=== PATIENT | male | born 1970 | race Caucasian/White ===

== ENCOUNTER 2020-07-06 16:17 | Observation (INO) | payer BC, SELFPAY ==
[2020-07-06] VITALS (12 sets, daily range): BP systolic 111–199; BP diastolic 76–102; PULSE 65–83; RESP 18–25; TEMP 36.1–36.5; O2SAT 97–100; BMI 39.4; BMI 40.7
--- NOTE | ~2020-07-06 | CT_ITS ---
EXAMINATION: CT brain wo con DATE: 07/06/2020 17:34 INDICATION: Syncope. TECHNIQUE: Computed tomography (CT) of the head was performed without intravenous contrast. The mA wa s adjusted according to patient size. Iterative reconstruction technique was employed. The dose-lengt h product was 681.00 mGy-cm. COMPARISON: None FINDINGS: There is no intracranial hemorrhage, acute infarction, or abnormal intracranial mass lesion . The ventricles are normal in size. There is mucosal thickening in the paranasal sinuses. The orbits are normal. There is a small left mastoid effusion. IMPRESSION: 1. Normal brain. Reviewed, dictated and finalized at location A. IMPRESSION: 1. Normal brain.
--- NOTE | 2020-07-06 16:49 | PC.NURSE ---
[employer] called and asked to come out because patient has a subcutaneous defibrillator. They state that they will send out a a rep
--- NOTE | 2020-07-06 17:06 | PC.NURSE ---
Rep called from [employer] again and asked if the pt family member could get his home monitor. he states that we can do a transmission that way. will go get it and bring it in
--- NOTE | 2020-07-06 17:19 | ECG_ITS ---
Measurements Intervals Rescue Rate: 76 P: 38 PA: 140 QRS: 21 QRSD: 86 T: 148 QT: 386 QTc: 435 Interpretive Statements SINUS RHYTHM ST-T WAVE ABNORMALITY IN ANTEROLAT/HIGH LAT LEADS- CONSIDER ISCHEMIA ABNORMAL ECG Electronically Signed On 07-07-2020 6:58:23 CDT by Gaston De La Fuente D.O.
--- NOTE | 2020-07-06 17:28 | ED.GENADULT ---
HPI - General Adult General Chief complaint: Syncope Stated complaint: defibrilator fired, syncope Time Seen by Provider: 07/06/20 17:01 Source: patient History of Present Illness HPI narrative: Patient is a 49 y/o male complaining of possible syncope and AICD firing. He states that he was feeling dizzy then he was not sure what happened. His states that he fell off while he was sitting on a bench and he was shaking and twitching for a while. He has no recollection of falling. He currently complains of some chest pain and felt he was shocked. Related Data Home Medications Medication Instructions Recorded Confirmed losartan 50 mg tablet 50 mg PO DAILY 03/24/19 03/24/19 metoprolol succinate 200 mg 200 mg PO DAILY 03/24/19 03/24/19 tablet,extended release 24 hr simvastatin 40 mg tablet 40 mg PO DAILY 03/24/19 03/24/19 omeprazole 20 mg PO DAILY 07/06/20 Allergies Allergy/AdvReac Type Severity Reaction Status Date / Time Penicillins Allergy Unknown Unknown Verified 07/06/20 16:43 Review of Systems Constitutional: Constitutional: Denies chills, Denies fever(s), Denies headache(s) and Denies weakness Eyes: Eyes: Denies blurry vision ENT: Denies headache(s) and Denies neck pain Cardiovascular: Cardiovascular: Reports chest pain and Denies dyspnea Respiratory: Respiratory: Denies cough and Denies dyspnea Gastrointestinal: Gastrointestinal: Denies abdominal pain, Denies diarrhea, Denies nausea and Denies vomiting Genitourinary: Genitourinary: Denies hematuria and Denies dysuria Musculoskeletal: Musculoskeletal: Denies back pain and Denies neck pain Neurologic: Reports dizziness, Reports syncope, Denies headache(s) and Denies weakness [facility] Past Medical History Medical History Cardiomegaly Essential (primary) hypertension GERD (gastroesophageal reflux disease) Hyperlipidemia due to dietary fat intake Implantable cardioverter-defibrillator (ICD) discharge Sleep apnea Family History Family History Father Acute myocardial infarction Mother Patient's mother is in good health Social History Social History Smoking status: Heavy tobacco smoker Alcohol intake: current Substance use: never Substance use type: does not use Gender identity (if verbalized by the patient): Male Spiritual care concerns: No Exam Const: General: no acute distress and well developed Orientation/consciousness: oriented to person, oriented to place, oriented to time and patient oriented x3 HENMT: Head: normocephalic Ears: external ears normal General nose exam: Normal external nose present Eyes: General: appearance normal, both eyes and all related structures Conjunctivae: conjunctivae normal Neck: Neck: normal visual inspection and full ROM Chest: Chest palpation & inspection: normal inspection of the chest and no tenderness Resp: Effort & Inspection: normal respiratory effort Auscultation: clear to auscultation bilaterally Cardio: Rate: regular rate Rhythm: regular rhythm GI: GI Palp: No abdominal tenderness and Yes Soft to palpation Skin: General skin exam: normal color and turgor normal Neuro: General: oriented to person, oriented to place, oriented to time and patient oriented x3 Cranial nerves: Yes CN's II-XII intact bilaterally Cognition (Neuro): normal cognition Speech: normal speech Motor exam (neuro): 5/5 motor strength present throughout Sensory Exam: normal sensation Coordination: [id number] test normal and [id number] test normal Extrem: General: normal to inspection, full ROM and no pedal edema Psych: Appearance: grossly normal Mental Status: mental status grossly normal Affect: normal affect Course Consultations Consultation #1: Discussed with Dr. Mckinnon, who agrees to consult and recommends admitting to hospitalist. Date:
[2020-07-06 17:56] LABS: Basophils Absolute Auto 0.1 K/mm3 (0.0-0.1); Basophils Percent Auto 1.4 % (0.2-1.2); Eosinophils Absolute Auto 0.4 K/mm3 (0-0.3); Eosinophils Percent Auto 4.4 % (0-4.4); Hematocrit 46.8 % (42.0-52.0); Hemoglobin 16.2 g/dL (14.0-18.0); Immature Granulocyte Absolute 0.06 K/mm3 (0.00-0.031); Immature Granulocyte Percent A 0.8 % (0-0.5); Lymphocytes Absolute Auto 2.19 K/mm3 (0.9-3.2); Lymphocytes Percent Auto 27.6 % (18.3-44.2); Mean Corpuscular HGB Conc 34.6 g/dl (32-36); Mean Corpuscular Hemoglobin 31.3 pg (26-34); Mean Corpuscular Volume 90.5 fl (80-100); Mean Platelet Volume 10.9 fl (7.4-10.4); Monocytes Absolute Auto 0.8 K/mm3 (0.1-0.6); Monocytes Percent Auto 9.7 % (2.6-8.5); Neutrophils Absolute Auto 4.5 K/mm3 (1.3-6.7); Neutrophils Percent Auto 56.1 % (45.5-73.1); Platelet Count Result 214 k/mm3 (150-375); Red Blood Count 5.17 M/mm3 (4.6-6.20); Red Cell Distribution Width 13.1 % (11.5-14.5); White Blood Count 7.9 K/mm3 (4.5-10.0)
--- NOTE | 2020-07-06 17:59 | PC.NURSE ---
Using pt home monitor to interpret his difibrillator
[2020-07-06 18:11] LABS: Alanine Aminotransferase 82 U/L (4-50); Albumin Level 4.4 g/dL (3.5-5.1); Alkaline Phosphatase 52 U/L (38-126); Anion Gap 8 mmol/L (8-16); Aspartate Amino Transferase 70 U/L (17-59); Bilirubin,Total 0.2 mg/dL (0.2-1.3); Blood Urea Nitrogen 9 mg/dL (9-20); Calcium 9.4 mg/dL (8.4-10.2); Carbon Dioxide 25 mmol/L (22-30); Chloride 106 mmol/L (98-107); Estimated CRCL calculation 137 ml/min; Estimated Glomerular Filt Rate > 60; Glucose 179 mg/dL (75-110); Potassium 3.8 mmol/L (3.4-5.0); Sodium 139 mmol/L (137-145)
[2020-07-06 18:25] LABS: Troponin I 0.447 ng/mL (0.000-0.034)
[2020-07-06 19:05] LABS: NT Pro B Type Natriuretic Pept 112 pg/mL (5-100)
--- NOTE | 2020-07-06 20:22 | ADMGEN ---
This patient, Celestino Murray, was admitted to IMU Room 214-01 at 2020. Patient/family oriented to hospital policies and general routines including ID bracelet, bed and alarms, visiting hours, pain management, procedures, bathroom and other care routines, personal items, smoking policy, room service/diet, and visiting hours. Information on how to activate the Rapid Response Team has been discussed. Patient/Family are encouraged to report perceived risks to care and to ask questions if they do not understand what they are told or what they should do.
[2020-07-06 21:03] LABS: Troponin I 0.398 ng/mL (0.000-0.034)
--- NOTE | 2020-07-06 21:30 | PM.IMHP ---
H&P: HPI History of Present Illness Date/Time: 07/06/20 21:30 Chief Complaint: Defibrillator fired. Narrative: This is a 49-year-old male smoker with hypertrophic obstructive cardiomyopathy status post defibrillator insertion, hypertension, hyperlipidemia, GERD, and obstructive sleep apnea on CPAP who presented to the emergency department earlier today via private vehicle from home for evaluation after his defibrillator fired not long prior to arrival. He was in his usual state of health when he awoke this morning and sometime this afternoon simply while sitting down he noticed midsternal chest pressure which lasted for perhaps an hour before resolving on its own. For some reason he ignored that feeling. Not not long prior to arrival, while sitting at the kitchen table he began to feel extremely dizzy and he then lost consciousness. His was next to him and notes that he was ?flopping around on the bench? just prior to his defibrillator firing. He was unresponsive for a brief second and they brought him to the hospital for evaluation shortly thereafter. A [employer] ICD was placed for primary prevention in June 2015 and couple of years later the site became infected and was extracted with reimplantation of a subcutaneous ICD below the left axilla. Prior to today he has not experienced any chest discomfort or exertional chest pain. At the time my evaluation he has some discomfort in his chest ?like I was kicked by a mule? which he believes is due to the defibrillator firing. He denies sweats, pleuritic pain, shortness of breath, palpitations, feelings of racing heart, nausea, vomiting, and sweats. Review of Systems Review of Systems: Narrative: Twelve systems were reviewed with pertinent positives and negatives as per HPI. No fever, chills, or sweats. No recent cold or flu symptoms. No known exposure to those positive for COVID-19. He denies cough. Except as documented, all other systems were reviewed and are negative. [facility] Past Medical History Medical History (Updated 07/06/20 @ 22:42 by Sheila Foreman PA-C) Essential hypertension Gastroesophageal reflux disease Hyperlipidemia Hypertrophic obstructive cardiomyopathy Obstructive sleep apnea on CPAP Tobacco abuse Surgical History Surgical History (Updated 07/06/20 @ 22:34 by Sheila Foreman PA-C) History of implantable cardioverter-defibrillator (ICD) insertion [employer] ICD placed for primary prevention June 2015. In May 2017 the site became infected and was extracted with reimplantation below the left axilla complicated by wound dehiscence requiring debridements. Family History Family History (Updated 07/06/20 @ 22:39 by Sheila Foreman PA-C) Father Sudden cardiac , Onset Age: 38 Acute myocardial infarction Mother Chronic obstructive pulmonary disease Sibling Heart disease Social History Social History (Updated 07/06/20 @ 22:38 by Sheila Foreman PA-C) Social History: The patient lives in [place] with his and 4 children. Works for the [employer]. Heavy smoker, up to 2.5 packs a day though down to around 1.5 packs a day. He drinks 12 to 24 beers a week. No illicit substance use. He designates his Kendra Murray as his surrogate decision maker and he wishes to be a full code. Meds Home Medications and Allergies Home Medications Medication Instructions Recorded Confirmed Type losartan 50 mg tablet 50 mg PO DAILY 03/24/19 07/06/20 History metoprolol succinate 200 mg 200 mg PO DAILY 03/24/19 07/06/20 History tablet,extended release 24 hr simvastatin 40 mg tablet 40 mg PO DAILY 03/24/19 07/06/20 History omeprazole 20 mg PO DAILY 07/06/20 07/06/20 History Allergies Allergy/AdvReac Type Severity Reaction Status Date / Time Penicillins Allergy Unknown Unknown Verified 07/06/20 16:43 Vital Signs Vital Signs - 24 hr 07/06/20 16:23 07/06/20 16:38 07/06/20 16:42 Temperature 97.4 F L Puls
[2020-07-07] VITALS (10 sets, daily range): BP systolic 150–162; BP diastolic 76–85; PULSE 55–70; RESP 14–20; TEMP 36.2–36.6; O2SAT 96–99
[2020-07-07 00:45] LABS: Troponin I 0.362 ng/mL (0.000-0.034)
[2020-07-07 01:20] LABS: Hepatitis B Surface Antigen Negative (Negative)
[2020-07-07 01:26] LABS: HAV RESULT Negative (Negative); Hepatitis B Core IgM Result Negative (Negative)
[2020-07-07 01:38] LABS: Hepatitis C Virus Antibody Negative (Negative)
[2020-07-07 04:57] LABS: Hemoglobin 15.8 g/dL (14.0-18.0); Mean Corpuscular HGB Conc 34.3 g/dl (32-36); Mean Corpuscular Hemoglobin 31.2 pg (26-34); Mean Corpuscular Volume 90.7 fl (80-100); Platelet Count Result 202 k/mm3 (150-375); Red Blood Count 5.07 M/mm3 (4.6-6.20); Red Cell Distribution Width 13.2 % (11.5-14.5); White Blood Count 9.3 K/mm3 (4.5-10.0)
[2020-07-07 05:16] LABS: Alanine Aminotransferase 70 U/L (4-50); Albumin Level 4.1 g/dL (3.5-5.1); Alkaline Phosphatase 44 U/L (38-126); Anion Gap 4 mmol/L (8-16); Aspartate Amino Transferase 58 U/L (17-59); Bilirubin,Total 0.3 mg/dL (0.2-1.3); Blood Urea Nitrogen 11 mg/dL (9-20); Calcium 9.2 mg/dL (8.4-10.2); Carbon Dioxide 27 mmol/L (22-30); Chloride 106 mmol/L (98-107); Estimated CRCL calculation 156 ml/min; Estimated Glomerular Filt Rate > 60; Glucose 149 mg/dL (75-110); Magnesium 1.7 mg/dL (1.6-2.3); Potassium 3.8 mmol/L (3.4-5.0); Sodium 137 mmol/L (137-145)
[2020-07-07] MEDS: METOPROLOL SUCCINATE EXT REL 100 MG TABCR 200 MG PO (08:14)
[2020-07-07] MEDS: PANTOPRAZOLE 40 MG TABLET PO (08:15)
[2020-07-07] MEDS: LOSARTAN POTASSIUM 50 MG TABLET PO (08:15)
[2020-07-07] MEDS: SIMVASTATIN 20 MG TABLET 40 MG PO (08:15)
--- NOTE | 2020-07-07 11:10 | PM.CNCAR ---
Assessment and Plan Assessment and plan (1) Ventricular fibrillation: Code(s): I49.01 - Ventricular fibrillation Status: Acute Assessment and Plan: Review of the [employer] ICD download shows the patient had ventricular fibrillation and appropriate and successful ICD discharge. No obvious cause; potassium and magnesium are within normal limits. Wonder if there is any relationship to his heavy drinking the day prior. Probably just an episode of VFib related to his underlying HOCM. I think it is reasonable for him to be discharged with outpatient follow-up. Will re-evaluate with an echo and a Lexiscan as an outpatient. The patient was told he should not drive, perhaps for 3-6 months, to make sure he has no further episodes. Will give a dose of potassium and magnesium prior to discharge, even though these were in the normal range, because of the small U wave noted on EKG. (2) AICD discharge: Code(s): Z45.02 - Encounter for adjustment and management of automatic implantable cardiac defibrillator Status: Acute Assessment and Plan: Appropriate ICD discharge. (3) Elevated troponin: Code(s): R77.8 - Other specified abnormalities of plasma proteins Status: Acute Assessment and Plan: Elevated troponins presumably related to the ICD discharge. (4) Hypertrophic obstructive cardiomyopathy: Code(s): I42.1 - Obstructive hypertrophic cardiomyopathy Status: Acute Assessment and Plan: Patient's cardiomyopathy is asymptomatic with respect to shortness of breath etc. but did predispose him to this ventricular fibrillation event (5) Chest pain: Qualifiers: Chest pain type: unspecified Qualified Code(s): R07.9 - Chest pain, unspecified Code(s): R07.9 - Chest pain, unspecified Status: Acute Assessment and Plan: Episode of chest pain on Sunday night, probably indigestion, will evaluate for any underlying CAD with an outpatient Lexiscan. EKG is abnormal, but this may be the patient's baseline. Will review an office EKG for comparison. (6) Essential hypertension: Code(s): I10 - Essential (primary) hypertension Status: Acute Assessment and Plan: BP high here, will follow-up in the office. May need additional antihypertensives. (7) Tobacco abuse: Code(s): Z72.0 - Tobacco use Status: Acute Assessment and Plan: Patient desires to quit smoking. Congratulated him and encouraged him on smoking cessation (8) Elevated LFTs: Code(s): R79.89 - Other specified abnormal findings of blood chemistry Status: Acute Assessment and Plan: Mildly elevated LFTs noted; may relate to the patient's alcohol use or perhaps he has a fatty liver. Patient was advised to cut back on his alcohol consumption. History of Present Illness History of Present Illness Consult date/time: 07/07/20 11:10 Requesting physician: Sheila Foreman PA-C Consult reason: Other (ICD discharge for V. fib) Reason For Visit: chest pain, vtach Narrative: Quoc Murray is a 49 y.o. white male with a history of HOCM whom I follow in the office. He had an ICD discharge yesterday evening for ventricular fibrillation and was admitted overnight for observation. We were asked to see him in consultation for advice and opinion regarding further follow-up and disposition. The patient states he has been in his normal state of health, able to pack boxes etc. with no particular problems with shortness of breath or chest pain. He did go out drinking heavily on Sunday night for friend's birthday and had some substernal chest pressure, nausea and vomited x1. He blames it on a Birgit; the episode of chest discomfort l
[2020-07-07] MEDS: POTASSIUM CHLORIDE 20 MEQ TABLET 40 MEQ PO (12:52)
[2020-07-07] MEDS: MAGNESIUM OXIDE 400 MG TABLET PO (12:53)
--- NOTE | 2020-07-07 13:08 | PM.DS ---
DS: Admitting Diagnosis Admitting Diagnosis Admitting Diagnosis: AICD firing 2/2 Vfib Elevated troponin Hypertrophic obstructive cardiomyopathy Hypertension Hyperlipidemia TAMICA Tobacco abuse Elevated LFTs DS: Discharge Diagnosis Discharge Diagnosis (1) AICD discharge: Code(s): Z45.02 - Encounter for adjustment and management of automatic implantable cardiac defibrillator Status: Acute (2) Elevated troponin: Code(s): R77.8 - Other specified abnormalities of plasma proteins Status: Acute (3) Hypertrophic obstructive cardiomyopathy: Code(s): I42.1 - Obstructive hypertrophic cardiomyopathy Status: Acute (4) Essential hypertension: Code(s): I10 - Essential (primary) hypertension Status: Acute (5) Hyperlipidemia: Code(s): E78.5 - Hyperlipidemia, unspecified Status: Acute (6) Obstructive sleep apnea on CPAP: Code(s): G47.33 - Obstructive sleep apnea (adult) (pediatric); Z99.89 - Dependence on other enabling machines and devices Status: Acute (7) Tobacco abuse: Code(s): Z72.0 - Tobacco use Status: Acute (8) Elevated LFTs: Code(s): R79.89 - Other specified abnormal findings of blood chemistry Status: Acute DS: Summary Hospital Course Reason for hospitalization: AICD firing Hospital Course: 49-year-old male with AICD presented to the emergency room after sudden firing of his device. This is the 1st episode he has had and he has had the device implanted for approximately 7 years. His amusement ride operator is bedside during my rounds today in his case is reviewed extensively. Patient has AICD is functioning properly. He is cleared for discharge home in stable condition to continue his beta-moustapha and follow-up with Dr. Whitaker in the outpatient setting. Time Spent with Patient Time attestation: Total time spent providing and/or coordinating discharge services: Time spent: Less than 30 minutes Exam Narrative: Exam Narrative: General: Well-developed male sitting up in bed in no distress. Weight: 117.9 kilograms. BMI: 40.7. HEENT: Normocephalic, atraumatic. EOMI. Sclerae anicteric. Oral mucosa moist. Neck: Supple. No JVD. Respiratory: No use of accessory muscles, symmetric chest rise Skin: No rash or lesions on limited exam. Extremities: No cyanosis or clubbing. Neurological: Alert. Cranial nerves 2-12 are grossly intact. No gross focal deficits to casual conversation. Psychiatric: Appropriate mood and affect. DS: Data Data Completed and Pending Labs on day of discharge: Labs from last 24 hours 07/07/20 07/07/20 07/07/20 04:41 04:41 04:41 WBC 9.3 RBC 5.07 Hgb 15.8 Hct 46.0 MCV 90.7 MCH 31.2 MCHC 34.3 RDW 13.2 Plt Count 202 MPV 11.0 H Immature Gran % (Auto) Neut % (Auto) Lymph % (Auto) [place] % (Auto) Eos % (Auto) Baso % (Auto) Lymph # (Auto) [place] # (Auto) Eos # (Auto) Baso # (Auto) Abs Immat Gran (auto) Absolute Neuts (auto) Absolute Nucleated RBC Nucleated RBC % Sodium 137 Potassium 3.8 Chloride 106 Carbon Dioxide 27 Anion Gap 4 L BUN 11 Creatinine 0.60 L Estim Creat Clear Calc 156 Estimated GFR > 60 Glucose 149 H Calcium 9.2 Magnesium 1.7 Total Bilirubin 0.3 AST 58 ALT 70 H Alkaline Phosphatase 44 Troponin I NT-Pro-B Natriuret Pep Total Protein 7.0 Albumin 4.1 TSH (Reflex) 2.540 Hepatitis A IgM Ab Hep Bs Antigen Hep B Core IgM Ab Hepatitis C Ab Screen 07/07/20 07/07/20 07/06/20 00:08 00:08 20:30 WBC RBC Hgb Hct MCV MCH MCHC RDW Plt Count MPV Immature Gran % (Auto) Neut % (Auto) Lymph % (Auto) [place] % (Auto) Eos % (Auto) Baso % (Auto) Lymph # (Auto) [place] # (Auto) Eos # (Auto) Baso # (Auto) Abs Immat Gran (auto) Absolute Neuts (auto) Absolute Nucleated
== END 2020-07-07 13:46 | disposition home or self-care (01) ==
LOC: ANHED 17:01 → ANHIMU 20:49
PROVIDERS: Physician Assistant; Admitting Provider Internal Medicine; Emergency Provider Emergency Medicine; PCP Internal Medicine; Visit Provider Hospitalist
DX: I49.01 Ventricular fibrillation (principal); Z45.02 Encounter for adjustment and management of automatic implantable cardiac defibrillator; I42.1 Obstructive hypertrophic cardiomyopathy; I10 Essential (primary) hypertension; E78.5 Hyperlipidemia, unspecified; F17.210 Nicotine dependence, cigarettes, uncomplicated; G47.33 Obstructive sleep apnea (adult) (pediatric); R77.8 Other specified abnormalities of plasma proteins; R79.89 Other specified abnormal findings of blood chemistry; K21.9 Gastro-esophageal reflux disease without esophagitis
CPT/HCPCS: 36415; 70450; 80053; 80074; 83735; 83880; 84443; 84484; 85025; 85027; 93005; 99285; A9270; G0378

== ENCOUNTER → 2021-05-13 03:00 | Outpatient (CLI) | payer BC, SELFPAY ==
[2021-05-13 12:21] LABS: SARS-CoV-2 RNA PCR Negative
== END ==
PROVIDERS: PCP Internal Medicine; Visit Provider Internal Medicine Gastroenterology
DX: Z01.812 Encounter for preprocedural laboratory examination (principal); Z20.822 Contact with and (suspected) exposure to COVID-19
CPT/HCPCS: C9803; U0003; U0005

== ENCOUNTER 2021-05-16 00:29 | Day surgery (SDC) | payer BC, SELFPAY ==
[2021-05-09 15:44] VITALS: BMI 42.5
--- NOTE | 2021-05-13 15:34 | PM.HPGS ---
History of Present Illness History of Present Illness Consent: Risks, benefits, and alternatives have been discussed and questions answered. Patient agrees to proceed with procedure. Chief complaint: neoplasm screening Narrative: Celestino Murray is a 50 year old male referred for colon cancer screening. Review of Systems Review of Systems: All systems reviewed & are unremarkable except as noted in HPI and below PMFSH Past Medical History Medical History Essential hypertension Gastroesophageal reflux disease Hyperlipidemia Hypertrophic obstructive cardiomyopathy Obstructive sleep apnea on CPAP Tobacco abuse Surgical History Surgical History History of implantable cardioverter-defibrillator (ICD) insertion [employer] ICD placed for primary prevention June 2015. In May 2017 the site became infected and was extracted with reimplantation below the left axilla complicated by wound dehiscence requiring debridements. Family History Family History Father Sudden cardiac , Onset Age: 38 Acute myocardial infarction Mother Chronic obstructive pulmonary disease Sibling Heart disease Social History Social History Social History: The patient lives in [place] with his and 4 children. Works for the [employer]. Heavy smoker, up to 2.5 packs a day though down to around 1.5 packs a day. He drinks 12 to 24 beers a week. No illicit substance use. He designates his Kendra Murray as his surrogate decision maker and he wishes to be a full code. Smoking packs per day: 1 Smoking cigarettes per day: 20.0 Years smoked: 30 Smoking pack-years: 30.00 Smoking status: Current every day smoker Tobacco type: cigarettes Alcohol intake: current Drinks per week: 12 Alcohol use details: BEER Substance use: never Substance use type: does not use Living arrangements: with family Spiritual care concerns: No Meds Home Medications and Allergies Home Medications Medication Instructions Recorded Confirmed Type metoprolol succinate 200 mg 200 mg PO DAILY 03/24/19 05/09/21 History tablet,extended release 24 hr clopidogrel 75 mg tablet 75 mg PO DAILY 07/30/20 05/09/21 History dapagliflozin 10 mg tablet 10 mg PO DAILY 07/30/20 05/09/21 History rosuvastatin 20 mg tablet 20 mg PO DAILY 07/30/20 05/09/21 History sotalol 120 mg tablet 120 mg PO Q12H 07/30/20 05/09/21 History aspirin 81 mg tablet,delayed 81 mg PO DAILY 01/31/21 05/09/21 History release losartan 100 mg tablet 100 mg PO DAILY 01/31/21 05/09/21 History multivitamin 1 tablet PO DAILY 01/31/21 05/09/21 History pantoprazole 40 mg tablet,delayed 40 mg PO QAM 01/31/21 05/09/21 History release propranolol 10 mg tablet 10 mg PO TID tablet 01/31/21 05/09/21 History Allergies Allergy/AdvReac Type Severity Reaction Status Date / Time Penicillins Allergy Intermediate Rash Verified 05/16/21 11:07 Exam Resp: Auscultation: clear to auscultation bilaterally Cardio: Rate: regular rate Rhythm: regular rhythm GI: GI Palp: Yes Soft to palpation and No Tenderness to palpation present (GI) Assessment and Plan Assessment and plan (1) Colon cancer screening: Code(s): Z12.11 - Encounter for screening for malignant neoplasm of colon Status: Acute Assessment and Plan: Colonoscopy with possible biopsy or polypectomy or cautery or injection of substances.
[2021-05-16 11:08] VITALS: BP 154/77; PULSE 72; RESP 16; TEMP 36.1; O2SAT 98; BMI 38.9
[2021-05-16] MEDS: LACTATED RINGERS 1,000 ML 150 ML IV CONT (11:22)
--- NOTE | 2021-05-16 11:25 | WPDANESEPPF ---
Anes - Initial Pre Proc Eval Procedure: Operation Date: 05/16/21 12:30 Proposed Procedures p Screening Colonoscopy - Elder Quiñonez MD Date/Time: 05/16/21 11:25 Surgeon: Elder Quiñonez MD Pre Op Diagnosis: neoplasm screening Patient Data Age: 50 Gender: M Height: 1.73 m Weight: 116.2 kg Last Vital Signs Temp 36.1 C L 05/16/21 11:08 Pulse 72 05/16/21 11:08 Resp 16 05/16/21 11:08 BP 154/77 H 05/16/21 11:08 Pulse Ox 98 05/16/21 11:08 Allergies Allergy/AdvReac Type Severity Reaction Status Date / Time Penicillins Allergy Intermediate Rash Verified 05/16/21 11:07 Home Medications Medication Instructions Recorded Confirmed Type metoprolol succinate 200 mg 200 mg PO DAILY 03/24/19 05/09/21 History tablet,extended release 24 hr clopidogrel 75 mg tablet 75 mg PO DAILY 07/30/20 05/09/21 History dapagliflozin 10 mg tablet 10 mg PO DAILY 07/30/20 05/09/21 History rosuvastatin 20 mg tablet 20 mg PO DAILY 07/30/20 05/09/21 History sotalol 120 mg tablet 120 mg PO Q12H 07/30/20 05/09/21 History aspirin 81 mg tablet,delayed 81 mg PO DAILY 01/31/21 05/09/21 History release losartan 100 mg tablet 100 mg PO DAILY 01/31/21 05/09/21 History multivitamin 1 tablet PO DAILY 01/31/21 05/09/21 History pantoprazole 40 mg tablet,delayed 40 mg PO QAM 01/31/21 05/09/21 History release propranolol 10 mg tablet 10 mg PO TID tablet 01/31/21 05/09/21 History Patient hx anesthesia problems: none Family hx anesthesia problems: none Results Review: All pre-operative results and documents have been reviewed as part of the pre-operative evaluation. [facility] Past Medical History Medical History Essential hypertension Gastroesophageal reflux disease Hyperlipidemia Hypertrophic obstructive cardiomyopathy Obstructive sleep apnea on CPAP Tobacco abuse Surgical History Surgical History History of implantable cardioverter-defibrillator (ICD) insertion [employer] ICD placed for primary prevention June 2015. In May 2017 the site became infected and was extracted with reimplantation below the left axilla complicated by wound dehiscence requiring debridements. Family History Family History Father Sudden cardiac , Onset Age: 38 Acute myocardial infarction Mother Chronic obstructive pulmonary disease Sibling Heart disease Social History Social History Social History: The patient lives in [place] with his and 4 children. Works for the [employer]. Heavy smoker, up to 2.5 packs a day though down to around 1.5 packs a day. He drinks 12 to 24 beers a week. No illicit substance use. He designates his Kendra Murray as his surrogate decision maker and he wishes to be a full code. Smoking packs per day: 1 Smoking cigarettes per day: 20.0 Years smoked: 30 Smoking pack-years: 30.00 Smoking status: Current every day smoker Tobacco type: cigarettes Alcohol intake: current Drinks per week: 12 Alcohol use details: BEER Substance use: never Substance use type: does not use Living arrangements: with family Spiritual care concerns: No Anes - Eval Final PreProcedure Day of Procedure 05/16/21 11:25 Patient weight: obese Heart: regular rate and rhythm Lungs: clear to auscultation Airway: Mallampati scale class III Neurological: alert and oriented Last oral intake: >/= 8 hours ASA classification: III Emergent: no Anesthetic plan: proceed Anesthesia type and monitoring: general GIVS and standard monitoring Results Review: All pre-operative results and documents have been reviewed as part of the pre-operative evaluation. Informed Consent: The patient's anesthetic plan and its attendant risks and benefits were discussed with the patient/family/POA
[2021-05-16 12:43] VITALS: BP 82/44; PULSE 64; RESP 20; O2SAT 92
[2021-05-16 12:53] VITALS: BP 97/46; PULSE 61; RESP 19; O2SAT 97
[2021-05-16 13:03] VITALS: BP 115/73; PULSE 62; RESP 14; O2SAT 97
== END 2021-05-16 13:15 | disposition home or self-care (01) ==
PROVIDERS: PCP Internal Medicine; Visit Provider Internal Medicine Gastroenterology
PROC: 0DJD8ZZ Inspection of Lower Intestinal Tract, Via Natural or Artificial Opening Endoscopic (ICD-10-PCS; CPT 45378; principal; 2021-05-16 12:30)
DX: Z12.11 Encounter for screening for malignant neoplasm of colon (principal); K64.8 Other hemorrhoids; Z79.82 Long term (current) use of aspirin; I10 Essential (primary) hypertension; K21.9 Gastro-esophageal reflux disease without esophagitis; G47.33 Obstructive sleep apnea (adult) (pediatric); E78.5 Hyperlipidemia, unspecified; I42.1 Obstructive hypertrophic cardiomyopathy; Z95.810 Presence of automatic (implantable) cardiac defibrillator; F17.210 Nicotine dependence, cigarettes, uncomplicated; E66.9 Obesity, unspecified; Z68.39 Body mass index [BMI] 39.0-39.9, adult
CPT/HCPCS: 45378; C9803; J2001; J2704; J7120; U0003; U0005

== ENCOUNTER 2021-10-01 21:06 | Emergency (ER) | payer BC, SELFPAY ==
[2021-10-01 21:10] VITALS: BP 125/76; PULSE 121; RESP 18; TEMP 36.1; O2SAT 97
--- NOTE | 2021-10-01 21:10 | ECG_ITS ---
Measurements Intervals [place] Rate: 137 P: SD: 0 QRS: 12 QRSD: 80 T: 144 QT: 303 QTc: 458 Interpretive Statements ATRIAL FIBRILLATION WITH RAPID VENTRICULAR RESPONSE LEFT VENTRICULAR HYPERTROPHY WITH ST-T CHANGE ST-T WAVE ABNORMALITY IN HIGH LATERAL LEADS- CONSIDER ISCHEMIA BASELINE WANDER- I, AVL, V1-V6 ABNORMAL ECG Electronically Signed On 10-02-2021 8:14:02 CDT by Gaston De La Fuente D.O.
--- NOTE | 2021-10-01 21:10 | ED.ARRPALP ---
HPI - Arrhythmia/Palpitations General Chief Complaint: Arrhythmia/Palpitations Stated Complaint: heart racing Time Seen by Provider: 10/01/21 21:10 Source: patient, family and RN notes reviewed Mode of arrival: ambulatory Limitations: no limitations History of Present Illness complaint: rapid heart beat and palpitations Onset (ago): hour(s) (1) Duration: constant Severity: moderate Context: occurred during rest Arrhythmia history: pacemaker Associated symptoms: chest pain, shortness of breath and nausea Related Data Home Medications Medication Instructions Recorded Confirmed clopidogrel 75 mg tablet 75 mg PO DAILY 07/30/20 10/02/21 dapagliflozin 10 mg tablet 10 mg PO DAILY 07/30/20 10/02/21 ([facility]) rosuvastatin 20 mg tablet 20 mg PO HS 07/30/20 10/02/21 sotalol 120 mg tablet 120 mg PO Q12H 07/30/20 10/02/21 aspirin 81 mg tablet,delayed 81 mg PO DAILY 01/31/21 10/02/21 release (Adult Low Dose Aspirin) losartan 100 mg tablet 100 mg PO DAILY 01/31/21 10/02/21 propranolol 10 mg tablet 10 mg PO TID 01/31/21 10/02/21 pantoprazole 40 mg tablet,delayed 40 mg PO DAILY 10/02/21 10/02/21 release Allergies Allergy/AdvReac Type Severity Reaction Status Date / Time Penicillins Allergy Intermediate Rash Verified 10/02/21 02:23 Review of Systems Review of Systems: All systems reviewed & are unremarkable except as noted in HPI and below Constitutional: Constitutional: Denies excessive sweating PMFSH Past Medical History Medical History Essential hypertension Gastroesophageal reflux disease Hyperlipidemia Hypertrophic obstructive cardiomyopathy Obstructive sleep apnea on CPAP Tobacco abuse Surgical History Surgical History History of implantable cardioverter-defibrillator (ICD) insertion [place] [employer] ICD placed for primary prevention June 2015. In May 2017 the site became infected and was extracted with reimplantation below the left axilla complicated by wound dehiscence requiring debridements. Family History Family History (Updated 10/02/21 @ 02:32 by Maren Boggs RN) Father Acute myocardial infarction Sudden cardiac , Onset Age: 38 Mother Chronic obstructive pulmonary disease Sibling Heart disease Grandparent Cerebrovascular accident Other Diabetes mellitus Social History Social History Social History: The patient lives in [place] with his and 4 children. Works for the [employer]. Heavy smoker, up to 2.5 packs a day though down to around 1.5 packs a day. He drinks 12 to 24 beers a week. No illicit substance use. He designates his Kendra Murray as his surrogate decision maker and he wishes to be a full code. Smoking packs per day: 1 Smoking cigarettes per day: 20.0 Years smoked: 25 Smoking pack-years: 25.00 Smoking status: Heavy tobacco smoker Tobacco type: cigarettes Second hand tobacco smoke exposure: Yes Alcohol intake: current Drinks per week: 12 Alcohol use details: BEER Substance use: never Substance use type: does not use Other substance usage details: 12 beers per week Spiritual care concerns: No Exam Const: General: healthy appearing, no acute distress and alert Nutritional Appearance: well nourished and obese morbidly obese Orientation/consciousness: patient oriented x3 Limitations: no limitations HENMT: Head: normal to inspection Ears: external ears normal Face and sinus: normal facial exam Eyes: Conjunctivae: conjunctivae normal Pupils: Equal, round and reactive pupils present EOM: EOMs intact bilaterally Neck: Neck: normal visual inspection Resp: Effort & Inspection: normal respiratory effort Auscultation: clear to auscultation bilaterally Cardio: Rate: tachycardic Rhythm: abnormal rhythm irregularly irregular GI: GI Palp: Yes Soft to palpation a
[2021-10-01 21:20] VITALS: PULSE 135
[2021-10-01] MEDS: dilTIAZem HCl INJ 25 MG/5 ML VIAL 20 MG IV PUSH (21:50)
[2021-10-01 21:52] LABS: Basophils Percent Auto 0.9 % (0.0-1.0); Eosinophils Percent Auto 3.8 % (1.0-6.0); Hematocrit 45.8 % (40.0-54.0); Hemoglobin 16.4 g/dL (14.0-18.0); Immature Granulocyte Absolute 0.05 K/mm3 (0.00-0.00); Immature Granulocyte Percent A 0.5 % (0.0-0.0); Lymphocytes Absolute Auto 2.81 K/mm3 (1.10-4.50); Lymphocytes Percent Auto 26.7 % (18.0-42.0); Mean Corpuscular HGB Conc 35.8 g/dL (32.0-36.0); Mean Corpuscular Hemoglobin 31.7 pg (27.0-31.0); Mean Corpuscular Volume 88.4 fL (78.0-102.0); Mean Platelet Volume 11.2 fl (8.7-11.0); Monocytes Absolute Auto 0.86 K/mm3 (0.10-0.90); Monocytes Percent Auto 8.2 % (2.0-11.0); Neutrophils Absolute Auto 6.3 K/mm3 (1.7-7.2); Neutrophils Percent Auto 59.9 % (50.0-70.0); Platelet Count Result 224 K/mm3 (150-420); Red Blood Count 5.18 M/mm3 (4.70-6.10); Red Cell Distribution Width 12.6 % (11.6-14.4); White Blood Count 10.5 K/mm3 (4.8-10.8)
[2021-10-01 21:53] VITALS: BP 114/66; PULSE 125
[2021-10-01] MEDS: dilTIAZem 100 MG/100 ML 100 MG/100 ML BAG 10 MG IV CONT (21:53)
[2021-10-01 22:04] VITALS: BP 113/72; PULSE 97
[2021-10-01 22:20] LABS: Alanine Aminotransferase 94 U/L (16-63); Alkaline Phosphatase 53 U/L (46-116); Anion Gap 13 mmol/L (8-16); Aspartate Amino Transferase 52 U/L (15-37); Bilirubin,Total 0.3 mg/dL (0.00-1.00); Blood Urea Nitrogen 9 mg/dL (7-18); Carbon Dioxide 22 mmol/L (21-32); Chloride 105 mmol/L (98-108); Estimated CRCL calculation 122 ml/min; Estimated Glomerular Filt Rate > 60; Glucose 138 mg/dL (70-99); NT Pro B Type Natriuretic Pept 97 pg/mL (0-125); Osmolality Calculated 290 mOsm/kg (285-295); Potassium 3.7 mmol/L (3.5-5.1); Sodium 140 mmol/L (136-145); Total Protein 7.7 g/dL (6.4-8.2)
[2021-10-01 22:21] LABS: Magnesium 1.9 mg/dL (1.8-2.4)
[2021-10-01 22:21] LABS: Thyroid Stimulating Hormone 2.53 uIU/mL (0.36-3.74)
[2021-10-01 22:23] LABS: Troponin I 609.7 ng/L (0.00-60.4)
--- NOTE | 2021-10-01 22:26 | ECG_ITS ---
Measurements Intervals [place] Rate: 86 P: [place]: 0 QRS: 28 QRSD: 97 T: 160 QT: 378 QTc: 454 Interpretive Statements ATRIAL FIBRILLATION ST-T WAVE ABNORMALITY IN ANTEROLAT/HIGH LAT LEADS- CONSIDER ISCHEMIA BASELINE WANDER- I, III, AVL, AVF ABNORMAL ECG Electronically Signed On 10-02-2021 8:14:38 CDT by Gaston De La Fuente D.O.
[2021-10-01 22:45] VITALS: BP 113/78; PULSE 86; RESP 18; O2SAT 97
[2021-10-01 23:15] VITALS: BP 120/70; PULSE 88; RESP 20; O2SAT 97
[2021-10-02 00:27] LABS: SARS-CoV-2 Ag Negative (Negative)
[2021-10-02 00:53] VITALS: BP 111/60; PULSE 88; RESP 18; TEMP 37; O2SAT 97
== END 2021-10-02 01:42 | disposition short-term general hospital (02) ==
PROVIDERS: Emergency Provider Emergency Medicine; PCP Internal Medicine
DX: I48.20 Chronic atrial fibrillation, unspecified (principal); F17.200 Nicotine dependence, unspecified, uncomplicated; I10 Essential (primary) hypertension; K21.9 Gastro-esophageal reflux disease without esophagitis; E78.5 Hyperlipidemia, unspecified; Z20.822 Contact with and (suspected) exposure to COVID-19
CPT/HCPCS: 36415; 80053; 83735; 83880; 84443; 84484; 85025; 87426; 93005; 96365; 96366; 99285; C9803

== ENCOUNTER 2021-10-02 02:24 | Observation (INO) | payer BC, SELFPAY ==
[2021-10-02] VITALS (21 sets, daily range): BP systolic 100–176; BP diastolic 42–85; PULSE 60–110; RESP 16–24; TEMP 36.1–36.7; O2SAT 98–99; BMI 41.9
--- NOTE | 2021-10-02 02:23 | PM.IMHP ---
H&P: HPI History of Present Illness Date/Time: 10/02/21 02:23 Chief Complaint: Palpitations Narrative: This is a 50-year-old male with past medical history significant for obstructive sleep apnea on CPAP at nighttime, tobacco dependence, hypertension, gastroesophageal reflux disease, hypertrophic obstructive cardiomyopathy status post AICD placement, morbid obesity. patient presents to the hospital acid transfer from outside hospital after he was diagnosed with atrial fibrillation with rapid ventricular response this is new onset for him although his had several episodes of ventricular fibrillation and shock according to patient he was playing sand box when he had new onset pounding of the chest with lightheadedness and some shortness of breath waited out for 30 minutes but did not go away and decided to go to the emergency room patient has been his usual state of health prior to these denies any syncope, near syncope, orthopnea, PND, leg swelling, chest pain he did develop some chest discomfort with this episode, denies any fevers, rigors, chills, nausea, vomiting, abdominal pain, diarrhea. Patient is been admitted for further evaluation management and treatment. Review of Systems Review of Systems: Palpitations, chest discomfort. Constitutional: Constitutional: Denies chills, Denies fever(s), Denies malaise, Denies night sweats and Denies weakness Eyes: Eyes: Denies change in vision ENT: Denies dysphagia, Denies vertigo, Denies dizziness and Denies odynophagia Cardiovascular: Cardiovascular: Reports chest pain, Reports rapid heart rate, Denies pedal edema, Reports irregular heart rhythm, Reports lightheadedness, Reports palpitations and Denies dyspnea on exertion Respiratory: Respiratory: Denies chest congestion, Denies cough, Denies excessive phlegm production and Denies dyspnea Gastrointestinal: Gastrointestinal: Denies dyspepsia, Denies heartburn, Denies diarrhea, Denies nausea and Denies vomiting Genitourinary: Genitourinary: Denies dysuria Musculoskeletal: Musculoskeletal: Denies back pain Integumentary/Breasts: Skin/Breast: Denies rash Neurologic: Denies focal weakness and Denies Sensory deficit (Neuro) Psychiatric: Psychiatric: Reports no additional psychiatric complaints and Reports as per HPI Endocrine: Endocrine: Denies cold intolerance, Denies fatigue, Denies flushing, Denies heat intolerance, Denies polyphagia, Denies polydipsia and Denies palpitations Allergic/Immunologic: Allergic/Immunologic: Reports no additional allergic/immunologic complaints and Reports as per HPI [facility] Past Medical History Medical History Essential hypertension Gastroesophageal reflux disease Hyperlipidemia Hypertrophic obstructive cardiomyopathy Obstructive sleep apnea on CPAP Tobacco abuse Surgical History Surgical History History of implantable cardioverter-defibrillator (ICD) insertion [place] [employer] ICD placed for primary prevention June 2015. In May 2017 the site became infected and was extracted with reimplantation below the left axilla complicated by wound dehiscence requiring debridements. Family History Family History (Updated 10/02/21 @ 02:32 by Maren Boggs RN) Father Acute myocardial infarction Sudden cardiac , Onset Age: 38 Mother Chronic obstructive pulmonary disease Sibling Heart disease Grandparent Cerebrovascular accident Other Diabetes mellitus Social History Social History Social History: The patient lives in [place] with his and 4 children. Works for the [employer]. Heavy smoker, up to 2.5 packs a day though down to around 1.5 packs a day. He drinks 12 to 24 beers a week. No illicit substance use. He designates his Kendra Murray as his surrogate decision maker and he wishes to be a full code. Smoking packs per
--- NOTE | 2021-10-02 02:26 | ECG_ITS ---
Measurements Intervals [place] Rate: 81 P: [place]: 0 QRS: 35 QRSD: 97 T: 160 QT: 384 QTc: 448 Interpretive Statements ATRIAL FIBRILLATION EARLY PRECORDIAL R/S TRANSITION ST-T WAVE ABNORMALITY IN ANTEROLAT/HIGH LAT LEADS- CONSIDER ISCHEMIA ABNORMAL ECG Electronically Signed On 10-02-2021 8:09:25 CDT by Gaston De La Fuente D.O.
[2021-10-02] MEDS: dilTIAZem 100 MG/100 ML 100 MG/100 ML BAG IV CONT (02:52)
--- NOTE | 2021-10-02 02:54 | PC.NURSE ---
This patient, Celestino Murray, was admitted to IMU Room 205-01 at 0206. Patient/family oriented to hospital policies and general routines including ID bracelet, bed and alarms, visiting hours, pain management, procedures, bathroom and other care routines, personal items, smoking policy, room service/diet, and visiting hours. Information on how to activate the Rapid Response Team has been discussed. Patient/Family are encouraged to report perceived risks to care and to ask questions if they do not understand what they are told or what they should do.
[2021-10-02 02:55] LABS: Basophils Absolute Auto 0.1 K/mm3 (0.0-0.1); Basophils Percent Auto 0.9 % (0.2-1.2); Eosinophils Absolute Auto 0.4 K/mm3 (0-0.3); Eosinophils Percent Auto 3.5 % (0-4.4); Hematocrit 46.9 % (42.0-52.0); Hemoglobin 16.2 g/dL (14.0-18.0); Immature Granulocyte Absolute 0.06 K/mm3 (0.00-0.031); Immature Granulocyte Percent A 0.6 % (0-0.5); Lymphocytes Absolute Auto 3.69 K/mm3 (0.9-3.2); Lymphocytes Percent Auto 33.9 % (18.3-44.2); Mean Corpuscular HGB Conc 34.5 g/dl (32-36); Mean Corpuscular Hemoglobin 30.6 pg (26-34); Mean Corpuscular Volume 88.7 fl (80-100); Mean Platelet Volume 10.8 fl (7.4-10.4); Monocytes Absolute Auto 0.9 K/mm3 (0.1-0.6); Neutrophils Absolute Auto 5.8 K/mm3 (1.3-6.7); Neutrophils Percent Auto 53.1 % (45.5-73.1); Platelet Count Result 226 k/mm3 (150-375); Red Blood Count 5.29 M/mm3 (4.6-6.20); Red Cell Distribution Width 13.2 % (11.5-14.5); White Blood Count 10.9 K/mm3 (4.5-10.0)
[2021-10-02 03:05] LABS: INR 1.1; Prothrombin Time 13.9 Seconds (11.1-14.7)
[2021-10-02 03:06] LABS: Hemoglobin A1C 6.1 % (<5.7); Partial Thromboplastin Time 30.6 SECONDS (22.3-36.8)
--- NOTE | 2021-10-02 03:11 | ECG_ITS ---
Measurements Intervals [place] Rate: 59 P: 43 [place]: 150 QRS: 33 QRSD: 91 T: 162 QT: 461 QTc: 460 Interpretive Statements SINUS BRADYCARDIA ST-T WAVE ABNORMALITY IN ANTEROLAT/HIGH LAT LEADS- CONSIDER ISCHEMIA ABNORMAL ECG Electronically Signed On 10-02-2021 17:22:29 CDT by Gaston De La Fuente D.O.
[2021-10-02 03:14] LABS: Magnesium 1.9 mg/dL (1.6-2.3)
[2021-10-02 03:31] LABS: Troponin I 0.798 ng/mL (0.000-0.034)
[2021-10-02] MEDS: WATER FOR IRRIGATION, STERILE 1,000 ML BOTTLE 1000 ML (03:41)
[2021-10-02 07:14] LABS: Troponin I 0.822 ng/mL (0.000-0.034)
[2021-10-02 07:52] LABS: Estimated CRCL calculation 139 ml/min; Estimated Glomerular Filt Rate > 60
--- NOTE | 2021-10-02 08:48 | PM.CNCAR ---
Assessment and Plan Assessment and plan (1) Atrial fibrillation with RVR: Code(s): I48.91 - Unspecified atrial fibrillation Status: Acute Assessment and Plan: New onset of AFib RVR Patient states compliant with his medications, sotalol and propranolol Contributing factors are his underlying heart disease, sleep apnea, and alcohol intake Reviewed atrial fibrillation, natural history, paroxysmal nature, risk of cardioembolic events etc. with the patient. Will change Lovenox to Xarelto, and discontinue clopidogrel. Increase propranolol and discontinue Cardizem If the patient remains in atrial fibrillation tomorrow we can proceed with a NASEEM guided cardioversion on Sunday (NASEEM because he may have had some intermittent episodes of AFib recently.) Will ask patient to follow-up with his jacquard loom heddles tier as an outpatient also, to see if we should increase the sotalol dose, or if any other approaches would be beneficial (ablation? ). (2) Elevated troponin: Code(s): R77.8 - Other specified abnormalities of plasma proteins Status: Acute Assessment and Plan: Type 2 [place], Elevated troponin secondary to known HOCM and AFib RVR. No ACS. Chronically abnormal EKG (3) CAD (coronary artery disease): Code(s): I25.10 - Atherosclerotic heart disease of [place] coronary artery without angina pectoris Status: Acute Assessment and Plan: History of RCA stent No angina, stable. No ACS. (4) Hypertrophic obstructive cardiomyopathy: Code(s): I42.1 - Obstructive hypertrophic cardiomyopathy Status: Acute Assessment and Plan: Hypertrophic obstructive cardiomyopathy, basically asymptomatic with good exertional tolerance. (5) Ventricular fibrillation: Code(s): I49.01 - Ventricular fibrillation Status: Acute Assessment and Plan: History of ventricular arrhythmias requiring multiple ICD discharges July 2020, quiescent on sotalol. (6) ICD (implantable cardioverter-defibrillator) in place: Code(s): Z95.810 - Presence of automatic (implantable) cardiac defibrillator Status: Acute Assessment and Plan: Subcutaneous ICD present, no recent ICD discharges. History of Present Illness History of Present Illness Consult date/time: 10/02/21 08:48 Reason For Visit: A Fib w/RVR Narrative: Celestino Murray is a 50 y.o. male whom I was asked to see at the request of Dr. Angulo for my advice and opinion regarding his atrial fibrillation, in consultation. I follow Mr. Murray in my office for his history of hypertrophic obstructive cardiomyopathy, ICD for primary prevention in June 2015, which was later revised for a subcutaneous ICD. He had ventricular tachycardia = and CAD status post RCA stent in July 2020. Before and after his RCA stent he had several episodes of ventricular tachycardia that were hard to control and he was started on amiodarone/mexiletine and later transferred to [place] and changed to sotalol. The ventricular arrhythmias settled down and was thought to be late sequelae of his myocardial ischemia. He also has a history of difficult to control hypertension, hyperlipidemia, TAMICA on CPAP and is a former smoker. The patient has been well, able to exert with no particular problems with the shortness of breath or chest pain. Last Sunday he noted little flutters in his chest but that went away after he laid down. Yesterday while playing sand bag, and drinking a few beers, he suddenly felt his heart race with fast heartbeats, heart pounding out of his chest and he got very sweaty. He had mild tightness and shortness of breath. After did resolve in 30 minutes he went to the ER in [place] was started on a Cardizem drip for AFib RVR in transferred to [facility]. He was started on Lovenox. He remains in AFib with heart rate in the 90s. No history of bleeding problems or prior atrial fibrillation. Compliant with CPAP. Does dri
[2021-10-02] MEDS: ENOXAPARIN 120 MG/0.8 ML SYRINGE SUB-Q (09:23)
[2021-10-02 10:09] LABS: Troponin I 0.683 ng/mL (0.000-0.034)
[2021-10-02] MEDS: PROPRANOLOL HCL 20 MG TABLET PO ×3 (10:27→18:31)
[2021-10-02] MEDS: PANTOPRAZOLE 40 MG TABLET PO (10:28)
[2021-10-02] MEDS: SOTALOL HCL 40 MG TABLET 120 MG PO ×2 (10:28→21:14)
[2021-10-02] MEDS: ASPIRIN 81 MG ENTERIC TABLET PO (10:28)
[2021-10-02] MEDS: LOSARTAN POTASSIUM 100 MG TABLET PO (10:28)
[2021-10-02] MEDS: ACETAMINOPHEN 325 MG TABLET 650 MG PO (10:37)
--- NOTE | 2021-10-02 12:11 | PM.IMPN ---
Progress Note: A&P Assessment and Plan (1) Atrial fibrillation with RVR: Code(s): I48.91 - Unspecified atrial fibrillation Status: Acute Assessment and Plan: Patient was on sotalol and propranolol prior to admission. He has been compliant with this regimen. He presents with elevated heart rate and found to have AFib with RVR. He was started on diltiazem drip and heart rate is become better controlled. TSH is normal. Echocardiogram has been ordered. Propranolol dose has been increased. Sotalol has been continued. QTC is 448. EKG does show anterior lateral ST T wave changes but this was present on EKG last year in felt to be chronic EKG findings. Troponin elevated to 0.8 but trending down. [place] related to Type II [place] from demand related to the RVR. Patient is on Lovenox since being converted to Xarelto. Cardiology was consulted. Continue to monitor on telemetry. Cardioversion being considered. (2) Hypertrophic obstructive cardiomyopathy: Code(s): I42.1 - Obstructive hypertrophic cardiomyopathy Status: Acute Assessment and Plan: Patient with a history of hypertrophic obstructive cardiomyopathy. ICD was placed in 2016 for primary prevention. This was later revised. He did develop ventricular tachycardia last year resulting in the firing of the ICD. Was felt related to the myocardial ischemia at the time. Continue tele. Echo ordered. Continue medical management with beta-moustapha, ARB and dapagliflozin. (3) Tobacco abuse: Code(s): Z72.0 - Tobacco use Status: Acute Assessment and Plan: Patient states he only smokes once a week when he drinks alcohol. He usually smokes a pack a day on that day. He was educated about the benefits of smoking cessation. (4) Obstructive sleep apnea on CPAP: Code(s): G47.33 - Obstructive sleep apnea (adult) (pediatric); Z99.89 - Dependence on other enabling machines and devices Status: Acute Assessment and Plan: Patient compliant with CPAP at night. Continue the same here. (5) Essential hypertension: Code(s): I10 - Essential (primary) hypertension Status: Acute Assessment and Plan: Patient's blood pressure was reviewed on 10/02 Blood pressure remains well controlled. Will continue current medications. (6) CAD (coronary artery disease): Code(s): I25.10 - Atherosclerotic heart disease of [place] coronary artery without angina pectoris Status: Acute Assessment and Plan: Patient with known coronary disease. EKG noted and as above. Troponin elevated as above. Continue medical management with Crestor, beta-moustapha, Plavix and aspirin. (7) Alcohol consumption binge drinking: Code(s): F10.10 - Alcohol abuse, uncomplicated Status: Acute Assessment and Plan: Patient binge drinks a 12 pack on the weekend. He was educated about the benefits of abstain from alcohol use. Plan DVT prophylaxis: Lovenox changing to Xarelto Code status: Full Diet: Heart healthy Subjective Date/time seen: 10/02/21 12:11 Interval history: 50yo male with CAD, TAMICA, HTN and hypertrophic cardiomyopathy here for heart racing and found to be in new onset AFib/RVR. Assuming care. Chart reviewed. Patient feels well today. Denies chest pain or shortness of breath. Has been up walking the bathroom without dyspnea. Patient is compliant with his CPAP at home. He continues to smoke when he drinks alcohol. He binge drinks usually a 12 pack on the weekend. Exam Narrative: AF 98.0 125/65 81 24 98% ra Gen - NARD Chest - CTA bilaterally, nml RR CV -irregularly irregular. S1-S2. Telemetry showing AFib and Aflutter with controlled rate Abd - Soft, NT/ND, Positive BS Ext - No pedal edema Psych - Nml mood and affect Skin - Warm and dry Objective Data Vital Signs Vital Signs: Vital Signs - 24 hr 10/02/21 02:15 10/02/21 02:12 10/02/21 02:52 Temperature 9
[2021-10-02] MEDS: RIVAROXABAN 20 MG TABLET PO (18:30)
[2021-10-02] MEDS: ROSUVASTATIN 10 MG TABLET 20 MG PO (18:32)
[2021-10-03] VITALS (8 sets, daily range): BP systolic 136–146; BP diastolic 60–71; PULSE 62–67; RESP 12–20; TEMP 36.2–36.8; O2SAT 97–100
[2021-10-03 05:32] LABS: Anion Gap 10 mmol/L (8-16); Blood Urea Nitrogen 12 mg/dL (9-20); Calcium 8.8 mg/dL (8.4-10.2); Carbon Dioxide 23 mmol/L (22-30); Chloride 102 mmol/L (98-107); Estimated CRCL calculation 139 ml/min; Estimated Glomerular Filt Rate > 60; Glucose 173 mg/dL (65-110); Potassium 3.8 mmol/L (3.4-5.0); Sodium 135 mmol/L (137-145)
[2021-10-03] MEDS: SOTALOL HCL 40 MG TABLET 120 MG PO (09:49)
[2021-10-03] MEDS: PROPRANOLOL HCL 20 MG TABLET PO (09:50)
[2021-10-03] MEDS: PANTOPRAZOLE 40 MG TABLET PO (09:50)
[2021-10-03] MEDS: LOSARTAN POTASSIUM 100 MG TABLET PO (09:50)
[2021-10-03] MEDS: ASPIRIN 81 MG ENTERIC TABLET PO (09:51)
--- NOTE | 2021-10-03 10:47 | PM.PNCARD ---
Progress Note: A&P Assessment and Plan (1) Atrial fibrillation with RVR: Code(s): I48.91 - Unspecified atrial fibrillation Status: Inactive Assessment and Plan: New onset of AFib RVR Continue sotalol 120 mg twice daily and propranolol 20 mg 3 times daily. Xarelto 20 mg added. Patient leaves he was already off clopidogrel as an outpatient. Continue aspirin 81 mg daily. Counseled to monitor for bleeding. Stable for discharge home today. Follow up with Dr. Whitaker in 1 month. Follow-up with heart failure Dr. White and EP at [place]. (2) Elevated troponin: Code(s): R77.8 - Other specified abnormalities of plasma proteins Status: Acute Assessment and Plan: Type 2 [place], Elevated troponin secondary to known HOCM and AFib RVR. No ACS. Chronically abnormal EKG (3) CAD (coronary artery disease): Code(s): I25.10 - Atherosclerotic heart disease of [place] coronary artery without angina pectoris Status: Acute Assessment and Plan: History of RCA stent No angina, stable. No ACS. (4) Hypertrophic obstructive cardiomyopathy: Code(s): I42.1 - Obstructive hypertrophic cardiomyopathy Status: Acute Assessment and Plan: Hypertrophic obstructive cardiomyopathy, basically asymptomatic with good exertional tolerance. (5) Ventricular fibrillation: Code(s): I49.01 - Ventricular fibrillation Status: Acute Assessment and Plan: History of ventricular arrhythmias requiring multiple ICD discharges July 2020, quiescent on sotalol. (6) ICD (implantable cardioverter-defibrillator) in place: Code(s): Z95.810 - Presence of automatic (implantable) cardiac defibrillator Status: Acute Assessment and Plan: Subcutaneous ICD present, no recent ICD discharges. Subjective Date/time seen: Date of service: 10/03/21 10:47 Follow-up for atrial fibrillation, ICD, history of HCM, CAD Patient feeling well. Remains in sinus rhythm on telemetry. No chest pain, palpitation, dizziness or shortness of breath. He is tolerating medications. Review of Systems Review of Systems: Fevers, chills, bleeding, dizziness, headache, chest pain or shortness of breath, no palpitations. Constitutional: Constitutional: Denies fever(s) Eyes: Eyes: Reports no additional eye complaints ENT: Denies epistaxis Cardiovascular: Cardiovascular: Reports chest pain, Denies pedal edema, Denies lightheadedness, Reports palpitations, Reports dyspnea (Mild shortness of breath with yesterday's AFib) and Denies dyspnea on exertion Respiratory: Respiratory: Denies chest congestion, Reports dyspnea (Mild shortness of breath with yesterday's AFib) and Denies dyspnea on exertion Gastrointestinal: Gastrointestinal: Denies abdominal pain and Denies hematochezia Genitourinary: Genitourinary: Denies hematuria Musculoskeletal: Musculoskeletal: Reports no additional musculoskeletal complaints Integumentary/Breasts: Skin/Breast: Reports system reviewed and no additional complaints, except as docu Neurologic: Reports system reviewed and no additional complaints, except as documented, Denies behavioral changes and Denies confusion Psychiatric: Psychiatric: Denies behavioral changes and Denies confusion Endocrine: Endocrine: Reports palpitations Exam Const: General: cooperative, healthy appearing and comfortable; No confusion Orientation/consciousness: oriented to person, patient oriented x3 and No confusion Other: Obese, pleasant, sleeping with CPAP on my arrival. HENMT: Mouth: Yes moist mucous membranes Eyes: EOM: EOMs intact bilaterally Neck: Neck: supple Thyroid: thyroid normal Carotids: no bruits Resp: Effort & Inspection: normal respiratory effort Auscultation: clear to auscultation bilaterally Cardio: Rate: regular rate Rhythm: regular rhythm and abnormal rhythm irregularly irregular Heart sounds: Murmur heart sound present (2/6 YASMEEN at the r
--- NOTE | 2021-10-03 10:48 | PM.DS ---
DS: Admitting Diagnosis Discharge Date 10/03/21 Admitting Diagnosis Palpitations DS: Discharge Diagnosis Discharge Diagnosis (1) Atrial fibrillation with RVR: Code(s): I48.91 - Unspecified atrial fibrillation Status: Inactive (2) Hypertrophic obstructive cardiomyopathy: Code(s): I42.1 - Obstructive hypertrophic cardiomyopathy Status: Acute (3) Tobacco abuse: Code(s): Z72.0 - Tobacco use Status: Acute (4) Obstructive sleep apnea on CPAP: Code(s): G47.33 - Obstructive sleep apnea (adult) (pediatric); Z99.89 - Dependence on other enabling machines and devices Status: Acute (5) Essential hypertension: Code(s): I10 - Essential (primary) hypertension Status: Acute (6) CAD (coronary artery disease): Code(s): I25.10 - Atherosclerotic heart disease of [place] coronary artery without angina pectoris Status: Acute (7) Alcohol consumption binge drinking: Code(s): F10.10 - Alcohol abuse, uncomplicated Status: Acute DS: Summary Hospital Course Reason for hospitalization: 50yo male with CAD, TAMICA, HTN and hypertrophic cardiomyopathy here for heart racing and found to be in new onset AFib/RVR. Please see H&P for details. Hospital Course: The following issues were addressed: (1) Atrial fibrillation with RVR: Patient was on sotalol and propranolol prior to admission.? He has been compliant with this regimen.? He presents with elevated heart rate and found to have AFib with RVR.? He was started on diltiazem drip and heart rate became better controlled.? TSH was normal.? Echocardiogram was ordered and is pending this dictation.? Propranolol dose was increased.? Sotalol was continued.? QTC was 448.? EKG does show anterior lateral ST T wave changes but this was present on EKG last year and felt to be chronic EKG findings.? Troponin elevated to 0.8 but trending down. [place] related to Type II VT from demand related to the RVR. Patient was on Lovenox before changing to Xarelto. He is able to afford this medication.? Cardiology was consulted.?Patient converted to normal sinus rhythm. (2) Hypertrophic obstructive cardiomyopathy: Patient with a history of hypertrophic obstructive cardiomyopathy.? ICD was placed in 2016 for primary prevention.? This was later revised.? He did develop ventricular tachycardia last year resulting in the firing of the ICD related to the myocardial ischemia at the time. We continued medical management with beta-moustapha, ARB and dapagliflozin. (3) Tobacco abuse: Patient states he only smokes once a week when he drinks alcohol.? He usually smokes a pack a day on that day.? He was educated about the benefits of smoking cessation. (4) Obstructive sleep apnea on CPAP: Patient is compliant with CPAP at night at home.?We continued the same here. (5) Essential hypertension: Patient's blood pressure was monitored closely and BP remained well controlled.? (6) CAD (coronary artery disease): Patient with known coronary disease.? EKG noted and as above. Troponin elevated as above. Continue medical management with Crestor, beta-moustapha and aspirin. (7) Alcohol consumption binge drinking: Patient binge drinks a 12 pack on the weekend.? He was educated about the benefits of abstaining from alcohol use. Status at Discharge Cognitive/behavioral status at discharge: Stable Time Spent with Patient Time attestation: Total time spent providing and/or coordinating discharge services: 35 minutes Time spent: Greater than 30 minutes Exam Narrative: AF 97.2 136/71 66 12 97% ra Gen - NARD Chest - CTA bilaterally, nml RR CV - RRR. S1-S2. Telemetry showing normal sinus Abd - Soft, NT/ND, Positive BS Ext - No pedal edema Psych - Nml mood and affect Skin - Warm and dry DS: Data Data Completed and Pending Labs on day of discharge: Labs from last 24 hours 10/03/21 04:29 Sodium 135 L Potassium 3.8 Chloride 1
== END 2021-10-03 12:28 | disposition home or self-care (01) ==
PROVIDERS: Admitting Provider Internal Medicine; PCP Internal Medicine; Visit Provider Internal Medicine
DX: I48.91 Unspecified atrial fibrillation (principal); I42.1 Obstructive hypertrophic cardiomyopathy; F17.210 Nicotine dependence, cigarettes, uncomplicated; G47.33 Obstructive sleep apnea (adult) (pediatric); Z99.89 Dependence on other enabling machines and devices; Z95.810 Presence of automatic (implantable) cardiac defibrillator; I10 Essential (primary) hypertension; I25.10 Atherosclerotic heart disease of native coronary artery without angina pectoris; F10.10 Alcohol abuse, uncomplicated; R77.8 Other specified abnormalities of plasma proteins; Z95.5 Presence of coronary angioplasty implant and graft; E78.5 Hyperlipidemia, unspecified; K21.9 Gastro-esophageal reflux disease without esophagitis; R94.31 Abnormal electrocardiogram [ECG] [EKG]; Z79.01 Long term (current) use of anticoagulants; Z79.84 Long term (current) use of oral hypoglycemic drugs; Z79.82 Long term (current) use of aspirin; Z79.899 Other long term (current) drug therapy; Z82.49 Family history of ischemic heart disease and other diseases of the circulatory system
CPT/HCPCS: 36415; 80048; 82565; 83036; 83735; 84484; 85025; 85610; 85730; 93005; 96372; A9270; G0378; J1650

== ENCOUNTER 2022-05-16 20:14 | Emergency (ER) | payer OTHER, SELFPAY ==
[2022-05-16] VITALS (11 sets, daily range): BP systolic 98–222; BP diastolic 53–90; PULSE 87–146; RESP 20; TEMP 36.6–37.2; O2SAT 96–100
--- NOTE | 2022-05-16 20:20 | ED.ARRPALP ---
HPI - Arrhythmia/Palpitations General Chief Complaint: Unspecified Stated Complaint: AFIB Time Seen by Provider: 05/16/22 20:20 Source: patient and RN notes reviewed Mode of arrival: ambulatory Limitations: no limitations History of Present Illness complaint: rapid heart beat, heart racing and palpitations Onset (ago): minute(s) (30) Duration: constant Severity: moderate Context: occurred during rest Arrhythmia history: atrial fibrillation Associated symptoms: chest pain (muscles ache in chest tightness) Related Data Home Medications Medication Instructions Recorded Confirmed rosuvastatin 20 mg tablet 20 mg PO HS 07/30/20 05/16/22 sotalol 120 mg tablet 120 mg PO Q12H 07/30/20 05/16/22 aspirin 81 mg tablet,delayed 81 mg PO DAILY 01/31/21 05/16/22 release (Adult Low Dose Aspirin) losartan 100 mg tablet 100 mg PO DAILY 01/31/21 05/16/22 pantoprazole 40 mg tablet,delayed 40 mg PO DAILY 10/02/21 05/16/22 release Allergies Allergy/AdvReac Type Severity Reaction Status Date / Time Penicillins Allergy Intermediate Rash Verified 10/02/21 02:23 Review of Systems Review of Systems: All systems reviewed & are unremarkable except as noted in HPI and below PMFSH Past Medical History Medical History (Updated 05/16/22 @ 21:31 by Omar Patterson MD) Alcohol consumption binge drinking Atrial fibrillation CAD (coronary artery disease) RCA stent 07/2020 Essential hypertension Gastroesophageal reflux disease Hyperlipidemia Hypertrophic obstructive cardiomyopathy Obstructive sleep apnea on CPAP Tobacco abuse Surgical History Surgical History History of implantable cardioverter-defibrillator (ICD) insertion [place] scientific ICD placed for primary prevention June 2015. In May 2017 the site became infected and was extracted with a subcutaneous reimplantation complicated by wound dehiscence requiring debridements. Family History Family History Father Acute myocardial infarction Sudden cardiac , Onset Age: 38 Mother Chronic obstructive pulmonary disease Sibling Heart disease Grandparent Cerebrovascular accident Other Diabetes mellitus Social History Social History Social History: The patient lives in [place] with his and 4 children. Works for the [employer]. Heavy smoker, up to 2.5 packs a day though down to around 1.5 packs a day. He drinks 12 to 24 beers a week. No illicit substance use. He designates his Kendra Murray as his surrogate decision maker and he wishes to be a full code. Smoking packs per day: 1 Smoking cigarettes per day: 20.0 Years smoked: 25 Smoking pack-years: 25.00 Smoking status: Heavy tobacco smoker Tobacco type: cigarettes Second hand tobacco smoke exposure: Yes Alcohol intake: current Drinks per week: 12 Alcohol use details: BEER Substance use: never Substance use type: does not use Other substance usage details: 12 beers per week Living arrangements: with family Spiritual care concerns: No Exam Const: General: healthy appearing, no acute distress and alert Nutritional Appearance: well nourished and obese centrally obese Orientation/consciousness: patient oriented x3 Limitations: no limitations HENMT: Head: normal to inspection Ears: external ears normal and TM's normal bilaterally Face/Nose/Sinus: Normal external nose present Face and sinus: normal facial exam Mouth: Yes moist mucous membranes Eyes: Conjunctivae: conjunctivae normal Pupils: Equal, round and reactive pupils present EOM: EOMs intact bilaterally Neck: Neck: normal visual inspection Resp: Effort & Inspection: normal respiratory effort Auscultation: clear to auscultation bilaterally Cardio: Rate: tachycardic Rhythm: abnormal rhythm irregularly irregular GI: GI Palp: Yes Soft to palpation an
--- NOTE | 2022-05-16 20:27 | ECG_ITS ---
Measurements Intervals [place] Rate: 138 P: SD: 0 QRS: 49 QRSD: 89 T: 117 QT: 293 QTc: 445 Interpretive Statements ATRIAL FIBRILLATION WITH RAPID VENTRICULAR RESPONSE ST-T WAVE ABNORMALITY IN HIGH LATERAL LEADS- CONSIDER ISCHEMIA BASELINE ARTIFACT- V2-V6 ABNORMAL ECG COMPARED TO ECG 10/02/2021 15:11:04 ATRIAL FIBRILLATION NOW PRESENT Electronically Signed On 05-16-2022 21:40:33 CDT by Gaston De La Fuente D.O.
[2022-05-16 20:39] LABS: Basophils Absolute Auto 0.12 K/mm3 (0.00-0.10); Eosinophils Absolute Auto 0.37 K/mm3 (0.02-0.50); Eosinophils Percent Auto 3.1 % (1.0-6.0); Hematocrit 48.6 % (40.0-54.0); Hemoglobin 17.3 g/dL (14.0-18.0); Immature Granulocyte Absolute 0.05 K/mm3 (0.00-0.00); Immature Granulocyte Percent A 0.4 % (0.0-0.0); Lymphocytes Absolute Auto 4.05 K/mm3 (1.10-4.50); Lymphocytes Percent Auto 34.1 % (18.0-42.0); Mean Corpuscular HGB Conc 35.6 g/dL (32.0-36.0); Mean Corpuscular Volume 87.1 fL (78.0-102.0); Mean Platelet Volume 11.1 fl (8.7-11.0); Monocytes Absolute Auto 1.11 K/mm3 (0.10-0.90); Monocytes Percent Auto 9.3 % (2.0-11.0); Neutrophils Absolute Auto 6.2 K/mm3 (1.7-7.2); Neutrophils Percent Auto 52.1 % (50.0-70.0); Platelet Count Result 257 K/mm3 (150-420); Red Blood Count 5.58 M/mm3 (4.70-6.10); Red Cell Distribution Width 13.4 % (11.6-14.4); White Blood Count 11.9 K/mm3 (4.8-10.8)
[2022-05-16] MEDS: dilTIAZem 100 MG/100 ML 100 MG/100 ML BAG 10 MG IV CONT (20:40)
[2022-05-16] MEDS: dilTIAZem HCl INJ 25 MG/5 ML VIAL IV PUSH (20:40)
[2022-05-16 20:54] LABS: INR 1.3; Partial Thromboplastin Time 34.7 SEC (23.90-30.70); Prothrombin Time 14.3 Seconds (9.50-12.10)
[2022-05-16 20:59] LABS: Alanine Aminotransferase 66 U/L (16-63); Albumin Level 4.3 g/dL (3.4-5.0); Alkaline Phosphatase 60 U/L (46-116); Anion Gap 13 mmol/L (8-16); Aspartate Amino Transferase 29 U/L (15-37); Bilirubin,Total 0.4 mg/dL (0.00-1.00); Blood Urea Nitrogen 8 mg/dL (7-18); Calcium 9.3 mg/dL (8.5-10.1); Carbon Dioxide 26 mmol/L (21-32); Chloride 107 mmol/L (98-108); Estimated Glomerular Filt Rate > 60; Glucose 131 mg/dL (70-99); NT Pro B Type Natriuretic Pept 90 pg/mL (0-125); Osmolality Calculated 302 mOsm/kg (285-295); Potassium 3.8 mmol/L (3.5-5.1); Sodium 146 mmol/L (136-145); Total Protein 8.3 g/dL (6.4-8.2)
[2022-05-16 21:00] LABS: Troponin I 365.9 ng/L (0.00-60.4)
== END 2022-05-16 23:08 | disposition short-term general hospital (02) ==
PROVIDERS: Emergency Provider Emergency Medicine
DX: I48.20 Chronic atrial fibrillation, unspecified (principal); R77.8 Other specified abnormalities of plasma proteins; I25.10 Atherosclerotic heart disease of native coronary artery without angina pectoris; E78.5 Hyperlipidemia, unspecified; I10 Essential (primary) hypertension; F17.210 Nicotine dependence, cigarettes, uncomplicated; Z79.82 Long term (current) use of aspirin; Z95.810 Presence of automatic (implantable) cardiac defibrillator
CPT/HCPCS: 36415; 80053; 83880; 84484; 85025; 85610; 85730; 93005; 96365; 96366; 96376; 99285

== ENCOUNTER 2022-05-16 23:38 | Observation (INO) | payer MEDICARE, SELFPAY ==
--- NOTE | ~2022-05-16 | XR_ITS ---
Portable chest x-ray Comparison: 05/24/2017 Clinical History: Chest pain Findings: Probable minimal central pulmonary venous congestive change noted. No consolidation or ple ural effusion. Cardiomediastinal silhouette is stable, with pacemaker device. Bones and soft tissues are unremarkable. Impression: Minimal central pulmonary venous congestive change. Pacemaker device. Reviewed, dictated and finalized at location . Impression: Minimal central pulmonary venous congestive change. Pacemaker device.
--- NOTE | 2022-05-16 23:37 | ADMGEN ---
This patient, Celestino Murray, was admitted to IMU Room 205-02. Patient/family oriented to hospital policies and general routines including ID bracelet, bed and alarms, visiting hours, pain management, procedures, bathroom and other care routines, personal items, smoking policy, room service/diet, and visiting hours. Information on how to activate the Rapid Response Team has been discussed. Patient/Family are encouraged to report perceived risks to care and to ask questions if they do not understand what they are told or what they should do.
[2022-05-16 23:45] VITALS: BP 123/73; PULSE 97; RESP 18; TEMP 36.4; O2SAT 98
[2022-05-16 23:46] VITALS: BMI 40.6
[2022-05-17] VITALS (19 sets, daily range): BP systolic 115–136; BP diastolic 67–85; PULSE 62–102; RESP 16–22; TEMP 36–36.6; O2SAT 97–99
--- NOTE | 2022-05-17 00:04 | PM.IMHP ---
H&P: HPI History of Present Illness Date/Time: 05/17/22 00:04 Chief Complaint: Chest pain Narrative: This is a 51-year-old male with past medical history significant for atrial fibrillation, gastroesophageal reflux disease, dyslipidemia, patient is rate controlled and anticoagulated, obesity, tobacco dependence, alcohol dependence, AICD in place. Presents to outside hospital emergency room due to palpitations chest pain felt like his chest caved in he took his regular medications but did not go away felt pounding on his chest as well denies any near-syncope or syncope or lightheadedness or dizziness with it no nausea or vomiting. Patient states that he has been his usual state of health up until this point denies any chest pain with activity or leg swelling or ankle swelling or shortness of breath or cough or sputum production no fevers rigors or chills.Patient was found to have atrial fibrillation with rapid ventricular response and placed on Cardizem drip. Preliminary workup was also significant for elevated troponins. Patient has been transferred to our facility for further evaluation management and treatment. Review of Systems Review of Systems: Palpitations, chest pain. Constitutional: Constitutional: Denies chills, Denies fatigue, Denies fever(s), Denies malaise and Denies weakness Eyes: Eyes: Denies change in vision ENT: Denies dysphagia and Denies odynophagia Cardiovascular: Cardiovascular: Reports chest pain, Denies leg edema and Reports palpitations Respiratory: Respiratory: Denies chest congestion and Denies cough Gastrointestinal: Gastrointestinal: Denies abdominal pain, Denies dyspepsia, Denies heartburn, Denies diarrhea, Denies nausea and Denies vomiting Genitourinary: Genitourinary: Denies dysuria Musculoskeletal: Musculoskeletal: Denies back pain and Denies muscle weakness Integumentary/Breasts: Skin/Breast: Denies rash Neurologic: Denies focal weakness and Denies Sensory deficit (Neuro) Psychiatric: Psychiatric: Reports no additional psychiatric complaints and Reports as per HPI Endocrine: Endocrine: Denies cold intolerance, Denies flushing, Denies heat intolerance, Denies polyphagia, Denies polydipsia and Denies palpitations Hematologic/Lymphatic: Hematologic/Lymphatic: Reports no additional hematologic/lymphatic complaints and Reports as per HPI Allergic/Immunologic: Allergic/Immunologic: Reports no additional allergic/immunologic complaints and Reports as per HPI [facility] Past Medical History Medical History (Updated 05/17/22 @ 03:54 by Kyle Pedroza MD) Alcohol consumption binge drinking Atrial fibrillation CAD (coronary artery disease) RCA stent 07/2020 Essential hypertension Gastroesophageal reflux disease Hyperlipidemia Hypertrophic obstructive cardiomyopathy Obstructive sleep apnea on CPAP Tobacco abuse Surgical History Surgical History History of implantable cardioverter-defibrillator (ICD) insertion [place] [employer] ICD placed for primary prevention June 2015. In May 2017 the site became infected and was extracted with a subcutaneous reimplantation complicated by wound dehiscence requiring debridements. Family History Family History Father Acute myocardial infarction Sudden cardiac , Onset Age: 38 Mother Chronic obstructive pulmonary disease Sibling Heart disease Grandparent Cerebrovascular accident Other Diabetes mellitus Social History Social History Social History: The patient lives in [place] with his and 4 children. Works for the [employer]. Heavy smoker, up to 2.5 packs a day though down to around 1.5 packs a day. He drinks 12 to 24 beers a week. No illicit substance use. He designates his Kendra Murray as his surrogate decision maker and he wishes to be a full code. Smoking packs p
[2022-05-17] MEDS: dilTIAZem 100 MG/100 ML 100 MG/100 ML BAG 10 MG IV CONT ×2 (00:32→09:18)
[2022-05-17 04:09] LABS: Basophils Absolute Auto 0.1 K/mm3 (0.0-0.1); Eosinophils Absolute Auto 0.3 K/mm3 (0-0.3); Eosinophils Percent Auto 2.7 % (0-4.4); Hematocrit 47.1 % (42.0-52.0); Hemoglobin 16.2 g/dL (14.0-18.0); Immature Granulocyte Absolute 0.06 K/mm3 (0.00-0.031); Immature Granulocyte Percent A 0.6 % (0-0.5); Lymphocytes Percent Auto 31.6 % (18.3-44.2); Mean Corpuscular HGB Conc 34.4 g/dl (32-36); Mean Corpuscular Hemoglobin 30.4 pg (26-34); Mean Corpuscular Volume 88.4 fl (80-100); Mean Platelet Volume 10.9 fl (7.4-10.4); Monocytes Absolute Auto 0.8 K/mm3 (0.1-0.6); Monocytes Percent Auto 7.5 % (2.6-8.5); Neutrophils Absolute Auto 5.9 K/mm3 (1.3-6.7); Neutrophils Percent Auto 56.6 % (45.5-73.1); Platelet Count Result 209 k/mm3 (150-375); Red Blood Count 5.33 M/mm3 (4.6-6.20); White Blood Count 10.5 K/mm3 (4.5-10.0)
[2022-05-17 04:21] LABS: INR 1.9; Prothrombin Time 20.8 Seconds (11.1-14.7)
[2022-05-17 04:22] LABS: Partial Thromboplastin Time 41.3 SECONDS (22.3-36.8)
[2022-05-17 04:23] LABS: Anion Gap 6 mmol/L (8-16); Blood Urea Nitrogen 11 mg/dL (9-20); Calcium 8.9 mg/dL (8.4-10.2); Carbon Dioxide 25 mmol/L (22-30); Chloride 109 mmol/L (98-107); Estimated CRCL calculation 134 ml/min; Estimated Glomerular Filt Rate > 60; Glucose 126 mg/dL (65-110); Magnesium 1.9 mg/dL (1.6-2.3); Phosphorus 5.3 mg/dL (2.5-4.5); Potassium 3.8 mmol/L (3.4-5.0); Sodium 140 mmol/L (137-145)
[2022-05-17] MEDS: LOSARTAN POTASSIUM 100 MG TABLET PO (09:20)
[2022-05-17] MEDS: PROPRANOLOL HCL 20 MG TABLET PO (09:20)
[2022-05-17] MEDS: SOTALOL HCL 40 MG TABLET 120 MG PO ×2 (09:20→20:09)
--- NOTE | 2022-05-17 10:58 | PM.IMPN ---
Progress Note: A&P Assessment and Plan (1) Atrial fibrillation with RVR: Code(s): I48.91 - Unspecified atrial fibrillation Status: Acute Assessment and Plan: Heart rate well controlled with IV diltiazem. He remains on propranolol and sotalol. He also remains on Xarelto. Wean off diltiazem as he tolerates. Cardiology has been consulted. Check TSH. (2) Elevated troponin: Code(s): R77.8 - Other specified abnormalities of plasma proteins Status: Acute Assessment and Plan: Patient with elevated troponins. Patient was having chest pain prior to admission. He has known coronary disease. EKG reviewed personally showing inverted T-waves in high lateral leads but this has been noted prior. Repeat EKG. Cardiology has been consulted. Continue aspirin, statin and beta-moustapha. (3) ICD (implantable cardioverter-defibrillator) in place: Code(s): Z95.810 - Presence of automatic (implantable) cardiac defibrillator Status: Acute Assessment and Plan: AICD in place. This has not fired recently. Continue to monitor (4) CAD (coronary artery disease): Code(s): I25.10 - Atherosclerotic heart disease of [place] coronary artery without angina pectoris Status: Acute Assessment and Plan: As above. (5) Obstructive sleep apnea on CPAP: Code(s): G47.33 - Obstructive sleep apnea (adult) (pediatric); Z99.89 - Dependence on other enabling machines and devices Status: Acute Assessment and Plan: CPAP at nighttime. He is compliant with treatment. (6) Alcohol consumption binge drinking: Code(s): F10.10 - Alcohol abuse, uncomplicated Status: Acute Assessment and Plan: He has a history of binge drinking. CIWA as needed. Follow. Add thiamine. (7) Tobacco dependence: Code(s): F17.200 - Nicotine dependence, unspecified, uncomplicated Status: Acute Assessment and Plan: Down to 5 cig/day. Patient was educated about the benefits of smoking cessation. Subjective Date/time seen: 05/17/22 10:58 Interval history: 51yo male with AFib, CAD and HTN here for chest pain and found to have AFib/RVR. Assuming care. Chart reviewed. He has been without insurance recently. He states he has been paying [id number] for his home medications. He believes he did miss some doses of Xarelto. He continues to smoke has cut back considerably. Drinks about 24 oz of caffeine per day. He had 3 beers prior to the onset of symptoms. Does have an AICD in place but this has not fired over the past 2 years. Exam Narrative: AF 96.8 136/85 84 18 99% ra Gen - NARD HEENT - right TM dull, left TM retracted Chest - mild diffuse expiratory wheezes. nml RR CV - irregularly irregular. 3/6 systolic murmur loudest at the apex. Tele showing AFib with controlled rate. Abd - Soft, NT/ND, Positive BS Ext - No pedal edema Psych - Nml mood and affect Skin - Warm and dry Objective Data Vital Signs Vital Signs: Vital Signs - 24 hr 05/16/22 23:45 05/17/22 00:32 05/17/22 00:00 Temperature 97.5 F L Pulse Rate 97 100 102 H Respiratory Rate 18 Blood Pressure 123/73 Pulse Oximetry 98 Oxygen Delivery 05/17/22 00:00 05/17/22 00:30 05/17/22 02:00 Temperature Pulse Rate 97 84 Respiratory Rate Blood Pressure Pulse Oximetry 98 Oxygen Delivery CPAP 05/17/22 04:00 05/17/22 04:00 05/17/22 04:00 Temperature 97.7 F Pulse Rate 82 82 93 Respiratory Rate 18 20 Blood Pressure 134/67 Pulse Oximetry 98 97 Oxygen Delivery CPAP 05/17/22 05:58 05/17/22 07:50 05/17/22 09:18 Temperature 96.8 F L Pulse Rate 84 80 92 Respiratory Rate 18 Blood Pressure 136/85 Pulse Oximetry 99 Oxygen Delivery 05/17/22 09:18 05/17/22 08:00 05/17/22 10:00 Temperature Pulse Rate 92 83 84 Respiratory Rate Blood Pressure Pulse Oximetry Oxygen Delivery 05/17/22 08:00 Temp
--- NOTE | 2022-05-17 11:09 | ECG_ITS ---
Measurements Intervals [place] Rate: 64 P: VT: 0 QRS: 27 QRSD: 97 T: 159 QT: 434 QTc: 451 Interpretive Statements ATRIAL FIBRILLATION ST-T WAVE ABNORMALITY IN ANTEROLAT/HIGH LAT LEADS- CONSIDER ISCHEMIA BASELINE ARTIFACT- I, III, V3-V4 ABNORMAL ECG COMPARED TO ECG 05/16/2022 20:39:01 HEART RATE HAS DECREASED Electronically Signed On 05-17-2022 12:46:38 CDT by Gaston De La Fuente D.O.
--- NOTE | 2022-05-17 11:19 | PM.CNCAR ---
Assessment and Plan Assessment and plan (1) Atrial fibrillation with RVR: Code(s): I48.91 - Unspecified atrial fibrillation Status: Acute Assessment and Plan: Patient reports compliance with his Sotalol and Propranolol, although not his Xarelto. Continue Xarelto. Continue Sotalol. Will stop Diltiazem drip and increase Propranolol dose. (2) Elevated troponin: Code(s): R77.8 - Other specified abnormalities of plasma proteins Status: Acute Assessment and Plan: Due to atrial fibrillation with RVR. No chest pain. (3) CAD (coronary artery disease): Code(s): I25.10 - Atherosclerotic heart disease of [place] coronary artery without angina pectoris Status: Acute Assessment and Plan: History of RCA stent. Stable. Continue ASA and statin (4) Hypertrophic obstructive cardiomyopathy: Code(s): I42.1 - Obstructive hypertrophic cardiomyopathy Status: Acute Assessment and Plan: Asymptomatic. (5) Ventricular fibrillation: Code(s): I49.01 - Ventricular fibrillation Status: Acute Assessment and Plan: History of ventricular arrhythmias requiring multiple ICD discharges July 2020, quiescent on sotalol. (6) ICD (implantable cardioverter-defibrillator) in place: Code(s): Z95.810 - Presence of automatic (implantable) cardiac defibrillator Status: Acute Assessment and Plan: Subcutaneous ICD present, no recent ICD discharges. History of Present Illness History of Present Illness Consult date/time: 05/17/22 11:19 Requesting physician: Kyle Pedroza MD Consult reason: atrial fibrillation Reason For Visit: Afib with RVR, elevated troponins Narrative: We are consulted for atrial fibrillation with RVR. This is a 51-year-old male who follows with Dr. Whitaker. He has a history of hypertrophic obstructive cardiomyopathy, ICD for primary prevention in June 2015, which was later revised for a subcutaneous ICD.? He had ventricular tachycardia and CAD status post RCA stent in July 2020.? Before and after his RCA stent he had several episodes of ventricular tachycardia that were hard to control and he was started on amiodarone/mexiletine and later transferred to [facility] and changed to sotalol.? The ventricular arrhythmias settled down and was thought to be late sequelae of his myocardial ischemia.? He also has a history of difficult to control hypertension, hyperlipidemia, TAMICA on CPAP and is a former smoker. Patient was last admitted here in September 2021. He has continued to follow with Dr. Whitaker and done well. Also follows with Dr. White at [facility]. Patient reports that he was doing well until last night when he got palpitations. Presented to [facility] where he was transferred here. Started on Diltiazem drip with improvement in his rate control. Patient states he is feeling well this morning. Remains in atrial fibrillation on Diltiazem drip but is rate controlled. Patient does state that he has missed a few doses of his Xarelto about a week ago. Review of Systems Review of Systems: All systems reviewed & are unremarkable except as noted in HPI and below (HPI) FOR[facility]LY [facility], [facility] Past Medical History Medical History Alcohol consumption binge drinking Atrial fibrillation CAD (coronary artery disease) RCA stent 07/2020 Essential hypertension Gastroesophageal reflux disease Hyperlipidemia Hypertrophic obstructive cardiomyopathy Obstructive sleep apnea on CPAP Tobacco abuse Surgical History Surgical History History of implantable cardioverter-defibrillator (ICD) insertion [place] [employer] ICD placed for primary prevention June 2015. In May 2017 the site became infected and was extracted with a subcutaneous reimplantation complicated by wound dehiscence requiring debridements. Family History Family History (Reviewed 05/17/22 @ 11:23 by Bola
[2022-05-17] MEDS: PROPRANOLOL HCL 40 MG TABLET PO ×2 (13:20→17:08)
[2022-05-17] MEDS: THIAMINE HCL 100 MG TABLET PO (13:21)
--- NOTE | 2022-05-17 16:06 | PCCCNOTE ---
On 05/17/22, the student, [Danika Urias ], provided care and completed [facility] documentation on this patient. I have reviewed the student's documentation and agree with the findings.
[2022-05-17] MEDS: RIVAROXABAN 20 MG TABLET PO (17:08)
[2022-05-17] MEDS: PANTOPRAZOLE 40 MG TABLET PO (20:09)
[2022-05-17] MEDS: ROSUVASTATIN 10 MG TABLET 20 MG PO (20:09)
[2022-05-17] MEDS: ASPIRIN 81 MG ENTERIC TABLET PO (20:09)
[2022-05-17] MEDS: ACETAMINOPHEN 500 MG TABLET 1000 MG PO (20:11)
[2022-05-18] VITALS (12 sets, daily range): BP systolic 117–138; BP diastolic 60–84; PULSE 56–84; RESP 16–66; TEMP 36.1–36.3; O2SAT 20–99
[2022-05-18 05:00] LABS: Hematocrit 49.1 % (42.0-52.0); Mean Corpuscular HGB Conc 34.6 g/dl (32-36); Mean Corpuscular Volume 86.6 fl (80-100); Mean Platelet Volume 10.8 fl (7.4-10.4); Platelet Count Result 239 k/mm3 (150-375); Red Blood Count 5.67 M/mm3 (4.6-6.20); Red Cell Distribution Width 13.8 % (11.5-14.5); White Blood Count 8.8 K/mm3 (4.5-10.0)
[2022-05-18 05:11] LABS: Alanine Aminotransferase 53 U/L (6-50); Albumin Level 4.5 g/dL (3.5-5.1); Alkaline Phosphatase 47 U/L (38-126); Anion Gap 7 mmol/L (8-16); Aspartate Amino Transferase 43 U/L (17-59); Bilirubin,Total 0.7 mg/dL (0.2-1.3); Blood Urea Nitrogen 10 mg/dL (9-20); Calcium 9.1 mg/dL (8.4-10.2); Carbon Dioxide 27 mmol/L (22-30); Chloride 104 mmol/L (98-107); Estimated CRCL calculation 134 ml/min; Estimated Glomerular Filt Rate > 60; Glucose 126 mg/dL (65-110); Potassium 3.9 mmol/L (3.4-5.0); Sodium 138 mmol/L (137-145)
[2022-05-18] MEDS: SOTALOL HCL 40 MG TABLET 120 MG PO (08:52)
[2022-05-18] MEDS: THIAMINE HCL 100 MG TABLET PO (08:52)
[2022-05-18] MEDS: PROPRANOLOL HCL 40 MG TABLET PO ×2 (08:53→13:26)
[2022-05-18] MEDS: LOSARTAN POTASSIUM 100 MG TABLET PO (08:53)
--- NOTE | 2022-05-18 09:28 | PM.PNCARD ---
Progress Note: A&P Assessment and Plan (1) Atrial fibrillation with RVR: Code(s): I48.91 - Unspecified atrial fibrillation Status: Acute Assessment and Plan: Patient reports compliance with his Sotalol and Propranolol, although not his Xarelto. He converted to sinus rhythm early this morning, remains in sinus rhythm at this time. Continue Xarelto. Continue Sotalol. Continue propranolol 40mg t.i.d OK for discharge today from a cardiac standpoint. I instructed him to make follow up appt. with his EP, Dr. Hodges. He will also follow up with Dr. Whitaker and Dr. White at [place]. (2) Elevated troponin: Code(s): R77.8 - Other specified abnormalities of plasma proteins Status: Acute Assessment and Plan: Due to atrial fibrillation with RVR. No chest pain. (3) CAD (coronary artery disease): Code(s): I25.10 - Atherosclerotic heart disease of [place] coronary artery without angina pectoris Status: Acute Assessment and Plan: History of RCA stent. Stable. Continue ASA and statin (4) Hypertrophic obstructive cardiomyopathy: Code(s): I42.1 - Obstructive hypertrophic cardiomyopathy Status: Acute Assessment and Plan: Asymptomatic. (5) Ventricular fibrillation: Code(s): I49.01 - Ventricular fibrillation Status: Acute Assessment and Plan: History of ventricular arrhythmias requiring multiple ICD discharges July 2020, quiescent on sotalol. (6) ICD (implantable cardioverter-defibrillator) in place: Code(s): Z95.810 - Presence of automatic (implantable) cardiac defibrillator Status: Acute Assessment and Plan: Subcutaneous ICD present, no recent ICD discharges. Subjective Date/time seen: 05/18/22 09:28 Cardiology follow up for atrial fibrillation He converted to sinus rhythm early this morning. Feeling well and has no complaints at this time. He denies any palpitations, chest pain, shortness of breath. Review of Systems Review of Systems: All systems reviewed & are unremarkable except as noted in HPI and below (HPI) Exam Const: General: comfortable and no acute distress Other: Morbidly obese HENMT: Mouth: Yes moist mucous membranes Eyes: General: appearance normal, both eyes and all related structures Sclera: sclerae normal Neck: Neck: supple Resp: Effort & Inspection: normal respiratory effort Auscultation: not clear to auscultation bilaterally and wheezes expiratory wheezes Cardio: Rate: regular rate Rhythm: regular rhythm Heart sounds: S1 normal heart sound present, S2 normal heart sound present and no murmurs Skin: General skin exam: normal color Neuro: Speech: normal speech Extrem: General: normal to inspection Other: no edema Psych: Mental Status: mental status grossly normal Affect: normal affect Objective Data Vital Signs Vital Signs: Vital Signs - 24 hr 05/17/22 10:00 05/17/22 11:44 05/17/22 12:00 Temperature 36.2 C L Pulse Rate 84 68 Respiratory Rate 22 H Blood Pressure 116/71 Pulse Oximetry 99 Oxygen Delivery Room Air 05/17/22 12:00 05/17/22 14:00 05/17/22 16:00 Temperature 36.3 C L Pulse Rate 71 62 83 Respiratory Rate 18 Blood Pressure 119/75 Pulse Oximetry 98 Oxygen Delivery 05/17/22 16:00 05/17/22 16:00 05/17/22 18:00 Temperature Pulse Rate 78 79 Respiratory Rate Blood Pressure Pulse Oximetry Oxygen Delivery Room Air 05/17/22 20:09 05/17/22 20:00 05/17/22 20:20 Temperature 36.6 C Pulse Rate 86 81 77 Respiratory Rate 16 Blood Pressure 115/73 Pulse Oximetry 99 99 Oxygen Delivery 05/17/22 20:00 05/17/22 20:00 05/17/22 22:00 Temperature Pulse Rate 78 79 Respiratory Rate Blood Pressure Pulse Oximetry Oxygen Delivery Room Air 05/18/22 00:00 05/18/22 00:00 05/18/22 00:00 Temperature 36.3 C L Pulse Rate 72 72 Respiratory Rate 20 Blood Pressure 118/69 Pulse Oximetry 2
--- NOTE | 2022-05-18 13:32 | PM.DS ---
DS: Admitting Diagnosis Discharge Date 05/18/22 Admitting Diagnosis Chest pain DS: Discharge Diagnosis Discharge Diagnosis (1) Atrial fibrillation with RVR: Code(s): I48.91 - Unspecified atrial fibrillation Status: Acute (2) Chest pain: Qualifiers: Chest pain type: unspecified Qualified Code(s): R07.9 - Chest pain, unspecified Code(s): R07.9 - Chest pain, unspecified Status: Acute (3) Elevated troponin: Code(s): R77.8 - Other specified abnormalities of plasma proteins Status: Acute (4) ICD (implantable cardioverter-defibrillator) in place: Code(s): Z95.810 - Presence of automatic (implantable) cardiac defibrillator Status: Acute (5) CAD (coronary artery disease): Code(s): I25.10 - Atherosclerotic heart disease of nik[place]ki coronary artery without angina pectoris Status: Acute (6) Obstructive sleep apnea on CPAP: Code(s): G47.33 - Obstructive sleep apnea (adult) (pediatric); Z99.89 - Dependence on other enabling machines and devices Status: Acute (7) Alcohol consumption binge drinking: Code(s): F10.10 - Alcohol abuse, uncomplicated Status: Acute (8) Tobacco dependence: Code(s): F17.200 - Nicotine dependence, unspecified, uncomplicated Status: Acute DS: Summary Hospital Course Reason for hospitalization: 51yo male with AFib, CAD and HTN here for chest pain and found to have AFib/RVR. Please see H&P for details Hospital Course: Patient was having chest pain prior to admission.? He has known coronary disease.? EKG showing Afib with RVR, inverted T-waves in high lateral leads but the T-wave changes has been noted prior.? Patient with elevated troponins.?He was started on IV diltiazem.? He remained on propranolol and sotalol.?We resumed Xarelto.? We advanced his propranolol and weaned off diltiazem.? Chest pain felt realted to the Afib/RVR. Cardiology was consulted.?TSH normal. AICD in place and has not fired recently. We continued his CPAP at nighttime. He is compliant with treatment. Patient was educated about the benefits of smoking cessation and from abstaining from alcohol. He converted to normal sinus rhythm. He overall did well and was able to be discharged home on 3/16/23. Status at Discharge Cognitive/behavioral status at discharge: Stable Time Spent with Patient Time attestation: Total time spent providing and/or coordinating discharge services: 32 minutes Time spent: Greater than 30 minutes Exam Narrative: AF 96.9 138/82 70 16 99% ra Gen - NARD Chest - CTA bilaterally, nml RR CV - RRR S1/S2. Tele showing normal sinus rhythm Abd - Soft, NT/ND, Positive BS Ext - No pedal edema Psych - Nml mood and affect Skin - Warm and dry DS: Data Data Completed and Pending Labs on day of discharge: Labs from last 24 hours 05/18/22 05/18/22 04:40 04:40 WBC 8.8 RBC 5.67 Hgb 17.0 Hct 49.1 MCV 86.6 MCH 30.0 MCHC 34.6 RDW 13.8 Plt Count 239 MPV 10.8 H Sodium 138 Potassium 3.9 Chloride 104 Carbon Dioxide 27 Anion Gap 7 L BUN 10 Creatinine 0.70 Estim Creat Clear Calc 134 Estimated GFR > 60 Glucose 126 H Calcium 9.1 Magnesium 2.0 Total Bilirubin 0.7 AST 43 ALT 53 H Alkaline Phosphatase 47 Total Protein 7.0 Albumin 4.5 Discharge Plan Discharge Attending physician on discharge: Eliecer العلي Consulting providers: Chiquis Cardona Discharging Clinician: Eliecer العلي Anticipated Discharge Date/Time: 05/18/22 13:44 Patient Disposition: Home, Self-Care Activity: as tolerated Diet: heart healthy Discharge Instructions: Contact your doctor or call 911 and come to the Emergency Room if you have any racing heart rate, chest pain or other worrisome symptoms. Avoid all products containing alcohol. Avoid all products containing tobacco or nicotine. Avoid NSAIDs (ibuprofen, naproxen, Aleve)
== END 2022-05-18 14:20 | disposition home or self-care (01) ==
PROVIDERS: Admitting Provider Internal Medicine; PCP Internal Medicine; Visit Provider Internal Medicine
DX: I48.91 Unspecified atrial fibrillation (principal); R77.8 Other specified abnormalities of plasma proteins; I25.10 Atherosclerotic heart disease of native coronary artery without angina pectoris; I42.1 Obstructive hypertrophic cardiomyopathy; I49.01 Ventricular fibrillation; Z95.810 Presence of automatic (implantable) cardiac defibrillator; I10 Essential (primary) hypertension; R94.31 Abnormal electrocardiogram [ECG] [EKG]; K21.9 Gastro-esophageal reflux disease without esophagitis; E78.5 Hyperlipidemia, unspecified; E66.01 Morbid (severe) obesity due to excess calories; Z68.41 Body mass index [BMI] 40.0-44.9, adult; F10.10 Alcohol abuse, uncomplicated; F17.210 Nicotine dependence, cigarettes, uncomplicated; G47.33 Obstructive sleep apnea (adult) (pediatric); Z99.89 Dependence on other enabling machines and devices; Z79.1 Long term (current) use of non-steroidal anti-inflammatories (NSAID); Z79.01 Long term (current) use of anticoagulants; Z79.82 Long term (current) use of aspirin; Z79.899 Other long term (current) drug therapy; Z82.49 Family history of ischemic heart disease and other diseases of the circulatory system
CPT/HCPCS: 36415; 71045; 80048; 80053; 83735; 84100; 84443; 85025; 85027; 85610; 85730; 93005; 96365; 96366; A9270; G0378

== ENCOUNTER 2023-02-20 09:12 | Outpatient (CLI) | payer BC, SELFPAY ==
[2023-02-20 11:47] LABS: Basophils Absolute Auto 0.1 K/mm3 (0.0-0.1); Basophils Percent Auto 0.9 % (0.2-1.2); Eosinophils Absolute Auto 0.3 K/mm3 (0-0.3); Eosinophils Percent Auto 3.1 % (0-4.4); Hemoglobin 16.4 g/dL (14.0-18.0); Immature Granulocyte Absolute 0.05 K/mm3 (0.00-0.031); Immature Granulocyte Percent A 0.6 % (0-0.5); Lymphocytes Absolute Auto 1.91 K/mm3 (0.9-3.2); Lymphocytes Percent Auto 23.6 % (18.3-44.2); Mean Corpuscular HGB Conc 33.5 g/dl (32-36); Mean Corpuscular Hemoglobin 29.4 pg (26-34); Mean Platelet Volume 12.1 fl (7.4-10.4); Monocytes Absolute Auto 0.7 K/mm3 (0.1-0.6); Monocytes Percent Auto 8.5 % (2.6-8.5); Neutrophils Absolute Auto 5.1 K/mm3 (1.3-6.7); Neutrophils Percent Auto 63.3 % (45.5-73.1); Platelet Count Result 179 k/mm3 (150-375); Red Blood Count 5.57 M/mm3 (4.6-6.20); Red Cell Distribution Width 13.7 % (11.5-14.5); White Blood Count 8.1 K/mm3 (4.5-10.0)
[2023-02-20 11:53] LABS: Alanine Aminotransferase 54 U/L (6-50); Albumin Level 4.3 g/dL (3.5-5.1); Alkaline Phosphatase 67 U/L (38-126); Anion Gap 10 mmol/L (8-16); Aspartate Amino Transferase 67 U/L (17-59); Bilirubin,Total 0.7 mg/dL (0.2-1.3); Blood Urea Nitrogen 10 mg/dL (9-20); Calcium 9.4 mg/dL (8.4-10.2); Carbon Dioxide 24 mmol/L (22-30); Chloride 105 mmol/L (98-107); Cholesterol 188 mg/dL (0-200); Estimated Glomerular Filt Rate > 60; Glucose 127 mg/dL (65-110); HDL Direct 28 mg/dL; Sodium 139 mmol/L (137-145); Triglycerides 280 mg/dL (<150)
[2023-02-20 12:04] LABS: LDL Cholesterol Direct 109 mg/dL
[2023-02-20 12:08] LABS: Hemoglobin A1C 5.7 % (<5.7)
[2023-02-20 12:19] LABS: Prostate Specific Antigen 0.3 ng/mL (< OR = 4.0)
== END 2023-02-20 09:13 | disposition home or self-care (01) ==
LOC: ANHGOSHLAB 09:14
PROVIDERS: PCP Internal Medicine; Visit Provider Nurse Practitioner
DX: E78.5 Hyperlipidemia, unspecified (principal); I10 Essential (primary) hypertension; I25.10 Atherosclerotic heart disease of native coronary artery without angina pectoris; R73.9 Hyperglycemia, unspecified; Z13.29 Encounter for screening for other suspected endocrine disorder; Z12.5 Encounter for screening for malignant neoplasm of prostate
CPT/HCPCS: 36415; 80053; 80061; 83036; 84153; 85025; G0103

== ENCOUNTER → 2023-04-27 11:41 | Outpatient (CLI) | payer BC, SELFPAY ==
--- NOTE | ~2023-04-27 | XR_ITS ---
EXAMINATION: XR lumbar spine 2-3V DATE: 04/27/2023 12:15 INDICATION: Low back pain TECHNIQUE: Anteroposterior and lateral views of the lumbar spine, and cone-down lateral view of the l umbosacral junction were obtained on five radiographs. COMPARISON: None. FINDINGS: Bone alignment is normal. There is no fracture. The lumbar vertebral body heights and inter vertebral disc spaces are maintained. Calcified atherosclerosis is noted. There is mild osteoarthriti s of the hips. IMPRESSION: 1. No acute osseous abnormality. Reviewed, dictated and finalized at location B. ID NATURAL GAS PLANT OPERATOR
== END ==
PROVIDERS: PCP Nurse Practitioner; Visit Provider Nurse Practitioner
DX: M54.50 Low back pain, unspecified (principal)
CPT/HCPCS: 72100

== ENCOUNTER 2024-11-13 19:52 | Emergency (ER) | payer BC, SELFPAY ==
--- NOTE | ~2024-11-13 | XR_ITS ---
EXAMINATION: XR chest 1V portable 11/13/2024 20:43 INDICATION: Chest pain. History of A. fib. PROCEDURE: AP portable chest COMPARISON: 05/24/2017 FINDINGS: The lungs are clear. The cardiomediastinal silhouette is within normal limits. There are no pleural effusions. There is no pneumothorax suspected. Single lead overlies the mediastinum. IMPRESSION: 1: NO ACUTE CARDIOPULMONARY DISEASE. Reviewed, dictated and finalized at location O.
--- NOTE | 2024-11-13 19:54 | ECG_ITS ---
Test Date: 2024-11-13 20:00:09 Measurements Intervals Bishop Rate: 112 P: 0 MO: 0 QRS: 17 QRSD: 95 T: 105 QT: 338 QTc: 462 Interpretive Statements ATRIAL FIBRILLATION WITH RAPID VENTRICULAR RESPONSE NONSPECIFIC T-WAVE ABNORMALITY No previous ECG available for comparison Electronically Signed On 11-14-2024 15:18:22 CDT by Td Sky M.D.
[2024-11-13 19:56] VITALS: BP 148/118; PULSE 122; RESP 20; TEMP 36.4; O2SAT 98
[2024-11-13 20:20] LABS: Hematocrit 51.1 % (42.0-52.0); Hemoglobin 17.1 g/dL (14.0-18.0); Immature Granulocyte Percent A 0.6 % (0-0.5); Lymphocytes Absolute Auto 3.01 K/mm3 (0.9-3.2); Mean Corpuscular HGB Conc 33.5 g/dl (32-36); Mean Corpuscular Hemoglobin 28.3 pg (26-34); Mean Corpuscular Volume 84.5 fl (80-100); Nucleated Red Blood Cells Absolute Auto 0.000 K/mm3 (0.0-0.012); Nucleated Red Blood Cells Perc 0.0 % (0.0-0.2); Platelet Count Result 263 k/mm3 (150-375); Red Blood Count 6.05 M/mm3 (4.6-6.20); White Blood Count 10.3 K/mm3 (4.5-10.0)
[2024-11-13 20:29] VITALS: BP 133/85; PULSE 123; RESP 18; O2SAT 100
[2024-11-13 20:32] LABS: INR 2.0; Prothrombin Time 22.5 Seconds (11.1-14.7)
[2024-11-13 20:33] LABS: Partial Thromboplastin Time 43.2 Seconds (22.3-36.8)
[2024-11-13 20:37] LABS: Alanine Aminotransferase 46 U/L (6-50); Albumin Level 4.7 g/dL (3.5-5.1); Alkaline Phosphatase 71 U/L (38-126); Anion Gap 14 mmol/L (4-12); Aspartate Amino Transferase 53 U/L (17-59); Bilirubin,Total 0.5 mg/dL (0.2-1.3); Blood Urea Nitrogen 13 mg/dL (9-20); Calcium 9.4 mg/dL (8.4-10.2); Carbon Dioxide 18 mmol/L (22-30); Chloride 109 mmol/L (98-107); Estimated CRCL calculation 117 ml/min; Estimated Glomerular Filt Rate > 60; Glucose 131 mg/dL (65-110); Lipase 180 U/L (23-300); Potassium 4.2 mmol/L (3.4-5.0); Sodium 141 mmol/L (137-145); Total Protein 8.4 g/dL (6.3-8.2)
[2024-11-13 20:44] LABS: Troponin I < 0.012 ng/mL (0.000-0.034)
[2024-11-13 21:42] VITALS: BP 102/76; PULSE 104; RESP 20; O2SAT 98
--- OUTSIDE RECORDS SUMMARY | 2024-11-13 21:45 | XMS_ITS | Encounter Summary ---
Author Organization [facility] Address [address] [place] [address] Care Team Providers Care Pattern Setter Name Role Phone Rito Crabtree DO Primary Care Provider + [phone] Rito Crabtree DO Primary Care Provider + [phone] Rito Crabtree DO Primary Care Provider + [phone] Rito Crabtree DO Primary Care Provider + [phone] Bassam White MD Unavailable [phone] Marta Galaviz RN Unavailable [phone] Gabby Whitaker MD Unavailable [phone] Serg Hodges MD Unavailable [phone] Cinthya Brown RN Unavailable [phone] Encounter Details Date Type Department Care Team (Late st Contact Info) Description 06/15/2015 Orders Only [facility] Provider, MD Nena [address] [place] [address] Social History Tobacco Use Types Packs/Day Years Used Date Smoking Tobacco: Heavy Smoker Comments:Smoking History Pac ks/day: 1 Packs Alcohol Use Standard Drinks/Week Comments Yes 0 (1 standard drink = 0.6 oz pur e alcohol) Sex and Gender Information Value Date Recorded Sex Assigned at Not on file 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 us Historical Provider [facility] MUNIR GREER Final Result documented in this encounter Visit Diagnoses Not on filedocumented in this encounter Additional Health Concerns Infection Onset Date Last Indicated Resolved Time COVID: Suspected 07/16/2020 07/16/2020 07/16/2020 2:06 PM CDT documented as of this encounter Care Teams Pattern Setter Relationship Specialty Start Date End Date Rito Crabtree DO PCP - General 06/02/16 Rito Crabtree DO PCP - General 11/21/15 06/01/16 Rito Crabtree DO PCP - General 06/22/15 11/20/15 Rito Crabtree DO PCP - General 05/20/15 06/21/15 Bassam White MD Juvenile Court Liaison Transplant 08/19/20 Marta Galaviz, RN [address] [id number] Bread Racker Cardiology 08/19/20 Gabby Whitaker MD [address] [address] Consulting Physician Cardiology 08/23/20 06/14/23 Serg Hodges MD [address] [address] Consulting Physician Cardiology 08/23/20 Cinthya Brown RN Registered Nurse Bread Racker 05/04/21 documented as of this encounter
--- OUTSIDE RECORDS SUMMARY | 2024-11-13 21:45 | XMS_ITS | Encounter Summary ---
Author Organization [facility] Medical [facility] Address [address] [place] [address] Care Team Providers Care Lesson Instructor Name Role Phone ChonnachoRito marie DO Primary Care Provider +- [phone] Bassam White MD Unavailable [phone] Marta Galaviz RN Unavailable [phone] Gabby Whitaker MD Unavailable [phone] Serg Hodges MD Unavailable [phone] Cinthya Brown RN Unavailable [phone] Encounter Details Date Type Department Care Team (Late st Contact Info) Description 06/06/2016 Orders Only [facility] Provider, MD Nena [address] [place] [address] Social History Tobacco Use Types Packs/Day Years Used Date Smoking Tobacco: Heavy Smoker Comments:Smoking History Pac ks/day: 1 Packs Alcohol Use Standard Drinks/Week Comments Yes 0 (1 standard drink = 0.6 oz pur e alcohol) Sex and Gender Information Value Date Recorded Sex Assigned at Not on file 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 us Historical Provider [facility] MUNIR GREER Final Result documented in this encounter Visit Diagnoses Not on filedocumented in this encounter Additional Health Concerns Infection Onset Date Last Indicated Resolved Time COVID: Suspected 07/16/2020 07/16/2020 07/16/2020 2:06 PM CDT documented as of this encounter Care Teams Lesson Instructor Relationship Specialty Start Date End Date Rito Crabtree DO PCP - General 06/02/16 Bassam White MD Barrel Raiser Transplant 08/19/20 Marta Galaviz RN [address] [address] Coin Dealer Cardiology 08/19/20 Gabby Whitaker MD [address] [address] Consulting Physician Cardiology 08/23/20 06/14/23 Serg Hodges MD [address] [address] Consulting Physician Cardiology 08/23/20 Cinthya Brown RN Registered Nurse Coin Dealer 05/04/21 documented as of this encounter
--- OUTSIDE RECORDS SUMMARY | 2024-11-13 21:45 | XMS_ITS | Clinical Summary ---
Author Organization [facility] Address [address] [place] [address] Phone Care Team Providers Care Lens Blank Gauger Name Role Phone Rito Crabtree DO Primary Care Provider Allergies Active Allergy Reactions Criticality Noted Date Comments Doxycycline Rash Low 07/19/2017 Penicillins Unknown Prochlorperazine Other (See Comments) 8 Pat grayson- ayanna henson at Dr Whitaker's office Medications propranoloL (INDERAL) 40 mg tablet take 1 tablet by mouth 3 times a day. Active pantoprazole (PROTONIX) 40 mg Tablet, Delayed Release (E.C.) Take 40 mg by mouth daily. Active empagliflozin (JARDIANCE) 10 mg tablet Take 10 mg by mouth daily. 01/12/2023 Active losartan (COZAAR) 100 mg tablet Take 1 Tablet by mouth daily. 02/27/2023 Active sotaloL (BETAPACE) 120 mg Tablet Take 120 mg by mouth 2 times daily. Active rosuvastatin (CRESTOR) 20 mg tablet take 1 tablet by mouth every day at night Active rivaroxaban (Xarelto) 20 mg Tablet Take 20 mg by mouth daily with supper. 03/13/2023 Active aspirin (ECOTRIN EC) 81 mg Tablet, Delayed Release (E.C.) Take 81 mg by mouth daily. 07/21/2020 Active calcium as carbonate (TUMS) 500 mg (200 mg elemental) Tablet, Chewable Take 200 mg by mouth 3 times daily as needed. Active Active Problems Patient Care Coordination No te Formatting of this note migh t be different from the original. RAISIN WASHER: DR. SHARMA Problem Noted Date Diagnosed Date Paroxysmal atrial fibrillati on with rapid ventricular response 05/25/2023 HOCM (hypertrophic obstructive cardiomyopathy) 0 05/25/2023 ICD (implantable cardioverte r-defibrillator) infection, subsequent encounter 07/26/2017 Overview (08/29/2017): Subq ICD implanted 08/22/17 [employer] A219, serial # [id number] ICD (implantable cardioverter-defibrillator) inf ection 06/19/2017 Hypertrophic cardiomyopathy 06/19/2017 Benign essential HTN 06/19/2017 Family history of sudden cardiac 8 TAMICA on CPAP 06/19/2017 Immunizations Immunization Administration Dates Next Due (ADACEL/BOOSTRIX)(10 YR UP) TDAP VACCINE, 0.5ML, IM 07/12/2017 Family History Medical History Relation Name Comments No Known Problems Brother Heart Disease Father No Known Problems Mother No Known Problems Sister 1 No Known Problems Sister 2 Relation Name Status Comments Brother Alive Father Mother Alive Sister 1 Alive Sister 2 Alive Social History Tobacco Use Types Packs/Day Years Used Date Smoking Tobacco: Every Day Cigarettes 1 25 Smokeless Tobacco: Never Tobacco Cessation:Ready to Q uit: Not Asked; Counseling Given: Not Answered Comments:quitting today Alcohol Use Standard Drinks/Week Comments Yes 56 (1 standard drink = 0.6 oz pu re alcohol) Feeling Safe Answer Date Recorded Are you in a relationship wi th someone who hurts you emotionally and/or physically? No 05/25/2023 Food Insecurity Answer Date Recorded Social/Environmental Concerns No concerns Transportation Needs Answer Date Record ed Social/Environmental Concerns No concerns Housing Stability Answer Date Recorded Social/Environmental Concerns No concerns Utility Needs Answer Date Recorded Social/Environmental Concerns No concerns Sex and Gender Information Value Date Recorded Sex Assigned at Not on file Legal Sex Male 9:46 AM CDT Gender Identity Not on file Sexual Orientation Not on file Last Filed Vital Signs Vital Sign Reading Time Taken Comments Blood Pressure 105/66 05/25/2023 1:40 PM CDT Pulse 68 05/25/2023 11:16 AM CDT Temperature 37 C (98.6 F) 05/25/2023 11:16 AM CDT Respiratory Rate 19 05/25/2023 11:1 6 AM CDT Oxygen Saturation 96% 05/25/2023 11: 16 AM CDT Inhaled Oxygen Concentration - - Weight 116.4 kg (256 lb 11.2 oz) 2023 8:38 AM CDT Height 171.5 cm (5' 7.5) 05/25/2023 8:38 AM CDT Body Mass Index 39.61 05/25/2023 8:38 AM CDT Plan of Treatment Health Maintenance Due Date Last Done Comments HEPATITIS B VACCINES (1 of 3 - 19+ 3-dose series) 12/04 COLORECTAL SCREENING 12/28/2016 Colorectal Cancer Screening 12/28/2016 FIT-DNA Q 3 years 12/28/2016 FIT/FOBT Q 1 year 12/28/2016 Flex Sig/CT Colonography Q 5 years 12/28/2016 ZOSTER VACCINE (1 of 2) 12/28/2021 INFLUENZA VACCINE (#1) 2024 DTAP/TDAP/TD VACCINES (2 - Td or Tdap) 07/13/2027 Medical Devices Implanted Type Area Color Television Console Monitor Device Identifier Shelf Expiration Date Model / Serial / Lot Defibrillator -08/22/2017 Implanted:Qty : 1 on 08/22/2017 by Ankit Castelan MD Defibrillator Left: Chest [employer]- STEEL RULE DIE MAKER APPRENTICE 09/22/2018 [id number] / [id number] / Description:SQ ICD Lead- 8 Implanted:Qty : 1 on 08/22/2017 by Ankit Castelan MD Lead Chest Wall [employer]- STEEL RULE DIE MAKER APPRENTICE 05/31/2019 3501 / [id number] / Description:SQ lead Explanted Type Area Color Television Console Monitor Device Identifier Shelf Expiration Date Model / Serial / Lot Right Atrial Lead Model 4470 Explanted:Qty: 1 on 07/11/2017 by Ankit Castelan MD at [facility] Lead N/A: Chest [employer] 4470 / [id number] / Description:right atrial nanette d Right Ventricular Lead Model 0292 Implanted:Qty: 1 Explanted:Qty: 1 on 07/11/[address] [facility] Lead N/A: Chest [employer] 0292 / [id number] / Description:Right Ventricula r Lead Icd Explanted:Qty: 1 on 07/11/2017 by Ankit Castelan MD at [facility] Description:device: inogen E L icd DF4-DR [id number]. implanted 06-15-2015 SN: [id number] Insurance Member Subscriber Plan / Payer (Ef fective for All Dates) Name:[place]el[place] E Relation to Subscriber:Self Name:Celestino Murray Margaret Payer ID:Not on file Group ID:[id number] Type:RX Commercial Address: [place] Advance Directives For more information, please contact: [phone] * Full Code (Latest Code Status on File) Date Activated Date Inactivated Comments 05/25/2023 8:46 AM 05/25/2023 6:02 PM * Full Code Date Activated Date Inactivated Comments 09/21/2017 2:36 PM 09/21/2017 7:29 PM * Full Code Date Activated Date Inactivated Comments 09/21/2017 8:23 AM 09/21/2017 2:36 PM * Full Code Date Activated Date Inactivated Comments 08/22/2017 4:17 PM 08/23/2017 11:32 AM * Full Code Date Activated Date Inactivated Comments 08/22/2017 9:48 AM 08/22/2017 4:17 PM Care Teams Lens Blank Gauger Relationship Specialty Start Date End Date Rito Crabtree DO [address] [address] PCP - General Internal Medicine 06/19/17
--- OUTSIDE RECORDS SUMMARY | 2024-11-13 21:45 | XMS_ITS | Encounter Summary ---
Author Organization [facility] Medical [facility] Address [address] [place] [address] Care Team Providers Care Speech Communication Instructor Name Role Phone Rito Crabtree DO Primary Care Provider + [phone] Rito Crabtree DO Primary Care Provider + [phone] Bassam White MD Unavailable [phone] Marta Galaviz RN Unavailable [phone] Gabby Whitaker MD Unavailable [phone] Serg Hodges MD Unavailable [phone] Cinthya Brown RN Unavailable [phone] Encounter Details Date Type Department Care Team (Late st Contact Info) Description 05/30/2016 Orders Only [facility] Provider, MD Nena [address] [place] [address] Social History Tobacco Use Types Packs/Day Years Used Date Smoking Tobacco: Heavy Smoker Comments:Smoking History Pac ks/day: 1 Packs Alcohol Use Standard Drinks/Week Comments Yes 0 (1 standard drink = 0.6 oz pur e alcohol) Sex and Gender Information Value Date Recorded Sex Assigned at Not on file 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 us Historical Provider [facility] MUNIR GREER Final Result documented in this encounter Visit Diagnoses Not on filedocumented in this encounter Additional Health Concerns Infection Onset Date Last Indicated Resolved Time COVID: Suspected 07/16/2020 07/16/2020 07/16/2020 2:06 PM CDT documented as of this encounter Care Teams Speech Communication Instructor Relationship Specialty Start Date End Date Rito Crabtree DO PCP - General 06/02/16 Rito Crabtere DO PCP - General 11/21/15 06/01/16 Bassam White MD Transitional Kindergarten Teacher Transplant 08/19/20 Marta Galaviz RN [address] [address] Screen Printer Helper Cardiology 08/19/20 Gabby Whitaker MD [address] [address] Consulting Physician Cardiology 08/23/20 06/14/23 Serg Hodges MD [address] [address] Consulting Physician Cardiology 08/23/20 Cinthya Brown, YOUNG Registered Nurse Screen Printer Helper 05/04/21 documented as of this encounter
[2024-11-13 21:48] VITALS: PULSE 91
[2024-11-13] MEDS: METOPROLOL TARTRATE INJ 5 MG/5 ML VIAL IV PUSH (21:48)
--- NOTE | 2024-11-13 22:05 | ED.GENADULT ---
HPI - General Adult General Chief complaint: Chest Pain Stated complaint: i'm stuck in a-fib Time Seen by Provider: 11/13/24 20:21 History of Present Illness HPI narrative: This is a 53-year-old male history of hypertrophic obstructive cardiomyopathy, coronary disease and AFib rate controlled on propanolol and sotalol presenting for palpitations. 1 hour prior to arrival he developed palpitations and chest discomfort. He has had this many times in the past when he has gone into AFib with RVR. He has been taking his medications as directed. Related Data Home Medications ?Medication ?Instructions ?Recorded ?Confirmed ?Last Taken ?Type rosuvastatin 20 mg tablet 20 mg PO HS 07/30/20 04/27/23 05/15/22 History sotalol 120 mg tablet 120 mg PO Q12H 07/30/20 04/27/23 05/16/22 08:00 History aspirin 81 mg tablet,delayed 81 mg PO HS 01/31/21 04/27/23 05/15/22 History release (Adult Low Dose Aspirin) losartan 100 mg tablet 100 mg PO DAILY 01/31/21 04/27/23 05/16/22 History pantoprazole 40 mg tablet,delayed 40 mg PO HS 10/02/21 04/27/23 05/15/22 History release acetaminophen 500 mg tablet 1,000 mg PO Q6H PRN Pain 05/16/22 04/27/23 Unknown History empagliflozin 10 mg tablet 10 mg PO DAILY 02/19/23 04/27/23 Unknown History (Jardiance) Allergies Allergy/AdvReac Type Severity Reaction Status Date / Time Penicillins Allergy Intermediate Rash Verified 11/13/24 20:00 [facility] Past Medical History Medical History Atrial fibrillation Alcohol consumption binge drinking CAD (coronary artery disease) RCA stent 07/2020 Tobacco abuse Obstructive sleep apnea on CPAP Gastroesophageal reflux disease Essential hypertension Hyperlipidemia Hypertrophic obstructive cardiomyopathy Surgical History Surgical History History of implantable cardioverter-defibrillator (ICD) insertion [place] scientific ICD placed for primary prevention June 2015. In May 2017 the site became infected and was extracted with a subcutaneous reimplantation complicated by wound dehiscence requiring debridements. Family History Family History Father Acute myocardial infarction Sudden cardiac , Onset Age: 38 Mother Chronic obstructive pulmonary disease Sibling Heart disease Grandparent Cerebrovascular accident Other Diabetes mellitus Social History Social History Social History: The patient lives in [place] with his and 4 children. Works for the [employer]. Heavy smoker, up to 2.5 packs a day though down to around 1.5 packs a day. He drinks 12 to 24 beers a week. No illicit substance use. He designates his Kendra Murray as his surrogate decision maker and he wishes to be a full code. Smoking packs per day: 1 Smoking cigarettes per day: 20.0 Years smoked: 25 Smoking pack-years: 25.00 Smoking status: Current some day smoker Tobacco type: cigarettes Second hand tobacco smoke exposure: Yes Additional smoking assessment comments: down to 5 cigarettes a day. Alcohol intake: never Drinks per week: 12 Alcohol use details: BEER Substance use: never Substance use type: does not use Other substance usage details: 12 beers per week Do You Feel Safe in your Home?: Yes Lack of Transportation: No Lack of Food: Never True Current Housing: I Have Housing Concerned About Future Housing: No Difficulty Paying Gas/Electric Bills: No Difficulty Paying for Meds: No Currently Unemployed: No Education: High School Diploma/GED Difficulty w/ Childcare or Family Care: No Living arrangements: with family Spiritual care concerns: No Exam Narrative: APPEARANCE: No apparent distress. Patient appears uncomfortable Head: atraumatic. EYES: EOMI, NOSE: Atraumatic NECK: Trachea midline RESPIRATORY: No increased rate of breathing clear to auscultation CARDIOVASCULAR: RRR, no peripheral edema ABDOMINAL: Non-distended soft nontender MUSCULOSKELETAl: No obvious deformities NEURO: Alert. Moving 4/4 extremities SKIN:: Moist skin PSYCHIATRIC: Normal affect Course Vital Signs Vital signs: Vital Signs Temperature 97.5 F L 11/13/24 19:56 Pulse Rate 122 H 11/13/24 19:56 Respiratory Rate 20 11/13/24 19:56 Blood Pressure 148/118 H 11/13/24 19:56 Pulse Oximetry 98 11/13/24 19:56 Oxygen Delivery Room Air 11/13/24 19:56 Temperature 97.5 F L 11/13/24 19:56 Pulse Rate 91 11/13/24 21:48 Respiratory Rate 20 11/13/24 21:42 Blood Pressure 102/76 11/13/24 21:42 Pulse Oximetry 98 11/13/24 21:42 Oxygen Delivery Room Air 11/13/24 19:56 Medical Decision Making MDM Narrative Medical decision making narrative: -Course: 53-year-old male presenting in AFib with RVR. I have patient take his home dose of propanolol/sotalol with some improvement in his heart rate. He was then given 5 of IV Lopressor which resulted in adequate rate control. Case was discussed with Dr. Cardona who recommended we increase his propanolol to 80 mg t.i.d.. Also they will call him tomorrow for close follow-up at the cardiology clinic. -DDX includes but is not limited to: AFib with RVR, ACS, pneumonia, dehydration Vital Signs Vital Signs: Vital Signs Temperature 97.5 F L 11/13/24 19:56 Pulse Rate 122 H 11/13/24 19:56 Respiratory Rate 20 11/13/24 19:56 Blood Pressure 148/118 H 11/13/24 19:56 Pulse Oximetry 98 11/13/24 19:56 Oxygen Delivery Room Air 11/13/24 19:56 Temperature 97.5 F L 11/13/24 19:56 Pulse Rate 91 11/13/24 21:48 Respiratory Rate 20 11/13/24 21:42 Blood Pressure 102/76 11/13/24 21:42 Pulse Oximetry 98 11/13/24 21:42 Oxygen Delivery Room Air 11/13/24 19:56 Lab Data 11/13/24 20:13 11/13/24 20:13 Labs: Lab Results 11/13/24 Range/Units 20:13 WBC 10.3 H (4.5-10.0) K/mm3 RBC 6.05 (4.6-6.20) M/mm3 Hgb 17.1 (14.0-18.0) g/dL Hct 51.1 (42.0-52.0) % MCV 84.5 (80-100) fl MCH 28.3 (26-34) pg MCHC 33.5 (32-36) g/dl RDW 14.9 H (11.5-14.5) % Plt Count 263 (150-375) k/mm3 MPV 11.3 H (7.4-10.4) fl Immature Gran % (Auto) 0.6 H (0-0.5) % Neut % (Auto) 55.6 (45.5-73.1) % Lymph % (Auto) 29.2 (18.3-44.2) % [place] % (Auto) 10.0 H (2.6-8.5) % Eos % (Auto) 3.3 (0-4.4) % Baso % (Auto) 1.3 H (0.2-1.2) % Lymph # (Auto) 3.01 (0.9-3.2) K/mm3 [place] # (Auto) 1.0 H (0.1-0.6) K/mm3 Eos # (Auto) 0.3 (0-0.3) K/mm3 Baso # (Auto) 0.1 (0.0-0.1) K/mm3 Abs Immat Gran (auto) 0.06 H (0.00-0.031) K/mm3 Absolute Neuts (auto) 5.7 (1.3-6.7) K/mm3 Absolute Nucleated RBC 0.000 (0.0-0.012) K/mm3 Nucleated RBC % 0.0 (0.0-0.2) % PT 22.5 H (11.1-14.7) Seconds INR 2.0 APTT 43.2 H (22.3-36.8) Seconds Sodium 141 (137-145) mmol/L Potassium 4.2 (3.4-5.0) mmol/L Chloride 109 H (98-107) mmol/L Carbon Dioxide 18 L (22-30) mmol/L Anion Gap 14 H (4-12) mmol/L BUN 13 (9-20) mg/dL Creatinine 0.80 (0.7-1.3) mg/dL Estim Creat Clear Calc 117 ml/min Estimated GFR > 60 (59 - ) Glucose 131 H (65-110) mg/dL Calcium 9.4 (8.4-10.2) mg/dL Total Bilirubin 0.5 (0.2-1.3) mg/dL AST 53 (17-59) U/L ALT 46 (6-50) U/L Alkaline Phosphatase 71 (38-126) U/L Troponin I < 0.012 (0.000-0.034) ng/mL Total Protein 8.4 H (6.3-8.2) g/dL Albumin 4.7 (3.5-5.1) g/dL Lipase 180 (23-300) U/L Discharge Plan Discharge Clinical Impression: Atrial fibrillation Patient Disposition: Home Condition: Stable Instructions: Antibiotic Form, A-fib (Atrial Fibrillation) (ED) Additional Instructions: He was seen emergency department for atrial fibrillation. Please increase your propanolol to 80 mg 3 times daily. Please call the cardiology clinic tomorrow morning for follow-up within the next 24 hours. They should be reaching out to but if you do not hear from them please call them. If you develop chest pain shortness of breath or any new symptoms return to the ED for re-evaluation. Patient Language: Slovak Prescriptions: No Action Jardiance 10 mg tablet 10 mg PO DAILY rosuvastatin 20 mg tablet 20 mg PO HS sotalol 120 mg tablet 120 mg PO Q12H aspirin [Adult Low Dose Aspirin] 81 mg tablet,delayed release (DR/EC) 81 mg PO HS losartan 100 mg tablet 100 mg PO DAILY methylprednisolone [Medrol (Ean)] 4 mg tablets,dose pack See Rx Instructions PO PER PKG DIR Qty: 21 0RF Rx Instructions: PO PER PKG DIR acetaminophen 500 mg Tablet 1,000 mg PO Q6H PRN (Reason: Pain) propranolol 40 mg Tablet 40 mg PO TID Qty: 90 1RF pantoprazole 40 mg tablet,delayed release (DR/EC) 40 mg PO HS Xarelto 20 mg Tablet 20 mg PO DAILY@1700 Qty: 30 2RF Follow-up/Referrals: Rito Crabtree DO [Primary Care Provider, Internal Medicine] Chiquis Cardona DO [Physician, Cardiology] - 1 Day Referral Note: Afib
[2024-11-13 22:08] VITALS: BP 108/81; PULSE 80; RESP 20; O2SAT 98
[2024-11-13 22:22] VITALS: BP 142/76; PULSE 91; RESP 18; O2SAT 99
== END 2024-11-13 22:22 | disposition home or self-care (01) ==
PROVIDERS: Emergency Provider Emergency Medicine; PCP Internal Medicine
DX: I48.91 Unspecified atrial fibrillation (principal); I25.10 Atherosclerotic heart disease of native coronary artery without angina pectoris; E78.5 Hyperlipidemia, unspecified; I10 Essential (primary) hypertension; F17.210 Nicotine dependence, cigarettes, uncomplicated
CPT/HCPCS: 36415; 71045; 80053; 83690; 84484; 85025; 85610; 85730; 93005; 96374; 99284; J0616